=== PATIENT | female | born 1955 | race Caucasian/White ===

== ENCOUNTER 2021-12-14 12:20 | Outpatient (REF) | payer MEDICARE, MEDICAID, SELFPAY ==
[2021-12-14 14:22] LABS: MANUAL DIFF FLAG NO
[2021-12-14 14:26] LABS: Basophils Absolute Auto 0.1 X10*3/uL (0.0-0.2); Basophils Percent Auto 0.8 % (0-2); Eosinophils Absolute Auto 0.2 X10*3/uL (0.0-0.4); Eosinophils Percent Auto 2.3 % (0-4); Hematocrit 37.5 % (37.0-47.0); Hemoglobin 11.9 g/dl (12.0-16.0); Imm Gran Abs Auto 0.04 X10*3/uL (0.00-0.03); Imm Gran Pct Auto 0.4 % (0.0-0.4); Lymphocytes Absolute Auto 1.5 X10*3/uL (1.2-4.9); Lymphocytes Percent Auto 15.4 % (20-40); Mean Corpuscular HGB Conc 31.7 g/dl (31.0-35.0); Mean Corpuscular Hemoglobin 31.9 pg (27.0-33.0); Mean Corpuscular Volume 100.5 fL (80.0-98.0); Mean Platelet Volume 9.6 fL (9.4-12.3); Monocytes Percent Auto 9.9 % (2-11); Neutrophils Percent Auto 71.2 % (45-73); Platelet Count 235 X10*3/uL (160-400); Red Blood Count 3.73 X10*6/uL (4.20-5.50); Red Cell Distribution Width 13.2 % (11.0-16.0); White Blood Count 9.8 X10*3/uL (4.8-10.8)
[2021-12-14 15:04] LABS: Alanine Aminotransferase 23 U/L (0-31); Albumin Level 4.3 g/dL (3.5-5.0); Alkaline Phosphatase 64 U/L (39-117); Anion Gap 12 (12-20); Aspartate Amino Transferase 41 U/L (5-31); Bilirubin Total 0.7 mg/dL (0.0-1.0); Blood Urea Nitrogen 9 mg/dL (9-16); Calcium 9.3 mg/dL (8.4-10.2); Carbon Dioxide 29 mmol/L (22-29); Chloride 99 mmol/L (96-108); Cholesterol 157 mg/dL; Estimated Glomerular Filt Rate > 60; Glucose Fasting 93 mg/dL (60-99); HDL Cholesterol 67 mg/dL; LDL Cholesterol Calculated 68 mg/dl; Potassium 4.1 mmol/L (3.3-5.1); Sodium 136 mmol/L (135-145); Total Protein 7.7 g/dL (6.5-8.0); Triglycerides 110 mg/dL
[2021-12-14 15:05] LABS: B Type Natriuretic Peptide 145 pg/mL (<100)
[2021-12-14 15:25] LABS: TSH reflex Free T4 1.71 uIU/mL (0.32-4.0)
== END 2021-12-14 12:21 | disposition home or self-care (01) ==
LOC: HO.WFDLDS 12:20
PROVIDERS: Visit Provider Family Medicine
DX: Z00.00 Encounter for general adult medical examination without abnormal findings (principal); I50.9 Heart failure, unspecified
CPT/HCPCS: 36415; 80053; 80061; 83880; 84443; 85025

== ENCOUNTER 2021-12-15 10:11 | Outpatient (REF) | payer MEDICARE, MEDICAID, SELFPAY ==
[2021-12-15 14:31] LABS: Appearance Urine CLEAR; Color Urine YELLOW; Glucose Urine UA NEG (NEG); Leukocyte Esterase Urine 2+ (NEG); Nitrite Urine POS (NEG); Specific Gravity - Urine <= 1.005 (1.005-1.025); Urine Blood NEG (NEG); Urine Ketones NEG (NEG); Urine Protein NEG (NEG-TRACE)
[2021-12-15 14:49] LABS: RBC Urine 0 /HPF (0); WBC Urine 30-49 /HPF (0-4)
[2021-12-15 14:50] LABS: Bacteria Urine 3+ /LPF; Squamous Epithelial Cell Urine 2+ /LPF
[2021-12-15 15:03] LABS: Creatinine Urine 34.09 mg/dL; Microalbumin Urine < 5.0 mg/L
== END 2021-12-15 10:12 | disposition home or self-care (01) ==
LOC: HO.WFDLNP 10:11
PROVIDERS: Visit Provider Family Medicine
DX: Z00.00 Encounter for general adult medical examination without abnormal findings (principal); I10 Essential (primary) hypertension
CPT/HCPCS: 81001; 81003; 82043

== ENCOUNTER 2022-01-23 14:18 | Outpatient (REF) | payer MEDICARE, MEDICAID, SELFPAY ==
[2022-01-24 11:22] LABS: Appearance Urine Clear; Color Urine Yellow; Glucose Urine UA Negative (Negative); Leukocyte Esterase Urine Trace (Negative); Nitrite Urine Negative (Negative); Specific Gravity - Urine <= 1.005 (1.005-1.025); Urine Blood Negative (Negative); Urine Ketones Negative (Negative); Urine Protein Negative (Neg-Trace)
[2022-01-24 11:27] LABS: Bacteria Urine 4+ (None Seen); Hyaline Casts Urine 0-2 /LPF (0-2); RBC Urine 0-2 /HPF (0-2); Squamous Epithelial Cell Urine 0-2 /HPF (0-2); WBC Urine 0-5 /HPF (0-5)
== END 2022-01-23 14:19 | disposition home or self-care (01) ==
LOC: HO.LAB 14:18
PROVIDERS: Visit Provider Family Medicine
DX: R82.71 Bacteriuria (principal)
CPT/HCPCS: 81001; 87086; 87088; 87186

== ENCOUNTER 2022-01-24 10:59 | Outpatient (REF) | payer MEDICARE, MEDICAID, SELFPAY | END 2022-01-24 11:00 | disposition home or self-care (01) | LOC: HO.LNP 10:59 | PROVIDERS: Visit Provider Family Medicine | DX: Z13.89 Encounter for screening for other disorder (principal) ==

== ENCOUNTER 2022-02-08 14:56 | Outpatient (REF) | payer MEDICARE, MEDICAID, SELFPAY | END 2022-02-08 14:57 | disposition home or self-care (01) | LOC: HO.MAMMO 14:56 | PROVIDERS: PCP Family Medicine; Visit Provider Family Medicine | DX: Z13.89 Encounter for screening for other disorder (principal) ==

== ENCOUNTER 2022-06-20 16:38 | Outpatient (REF) | payer MEDICARE, MEDICAID, SELFPAY ==
[2022-06-20 17:21] LABS: Influenza A PCR NEGATIVE (Negative); Influenza B PCR NEGATIVE (Negative); Resp Syncy Virus RNA Qual PCR NEGATIVE (Negative); SARS COV2 PCR INHOUSE NEGATIVE (Negative)
== END 2022-06-20 16:39 | disposition home or self-care (01) ==
LOC: HO.LNP 16:38
PROVIDERS: Visit Provider Internal Medicine
DX: Z20.822 Contact with and (suspected) exposure to COVID-19 (principal); R43.9 Unspecified disturbances of smell and taste
CPT/HCPCS: 0241U

== ENCOUNTER 2022-07-04 11:51 | Outpatient (REF) | payer MEDICARE, MEDICAID, SELFPAY ==
[2022-07-04 13:53] LABS: Hematocrit 39.5 % (37.0-47.0); Mean Corpuscular HGB Conc 32.9 g/dl (31.0-35.0); Mean Platelet Volume 9.6 fL (9.4-12.3); Platelet Count 317 X10*3/uL (160-400); Red Cell Distribution Width 12.8 % (11.0-16.0); White Blood Count 29.9 X10*3/uL (4.8-10.8)
[2022-07-04 14:42] LABS: Alanine Aminotransferase 222 U/L (0-31); Albumin Level 3.5 g/dL (3.5-5.0); Alkaline Phosphatase 133 U/L (39-117); Anion Gap 20 (12-20); Aspartate Amino Transferase 216 U/L (5-31); Bilirubin Total 0.9 mg/dL (0.0-1.0); Blood Urea Nitrogen 10 mg/dL (9-16); Calcium 8.6 mg/dL (8.4-10.2); Carbon Dioxide 25 mmol/L (22-29); Chloride 92 mmol/L (96-108); Cholesterol 114 mg/dL; Estimated Glomerular Filt Rate > 60; Glucose Fasting 66 mg/dL (60-99); HDL Cholesterol 54 mg/dL; LDL Cholesterol Calculated 45 mg/dl; Potassium 3.5 mmol/L (3.3-5.1); Sodium 133 mmol/L (135-145); Total Protein 6.4 g/dL (6.5-8.0); Triglycerides 77 mg/dL
[2022-07-04 14:58] LABS: Folate 15.1 ng/mL (> or = 4.0); TSH reflex Free T4 0.72 uIU/mL (0.32-4.0); Vitamin B12 1472 pg/mL (200-900)
== END 2022-07-04 11:52 | disposition home or self-care (01) ==
LOC: HO.WFDLDS 11:51
PROVIDERS: Visit Provider Nurse Practitioner Family
DX: J20.9 Acute bronchitis, unspecified (principal)
CPT/HCPCS: 36415; 80053; 80061; 82607; 82746; 84443; 85027

== ENCOUNTER 2022-07-09 10:34 | Outpatient (REF) | payer MEDICARE, MEDICAID, SELFPAY ==
[2022-07-09 14:00] LABS: MANUAL DIFF FLAG NO
[2022-07-09 14:04] LABS: Basophils Percent Auto 0.1 % (0-2); Eosinophils Absolute Auto 0.1 X10*3/uL (0.0-0.4); Eosinophils Percent Auto 0.6 % (0-4); Hemoglobin 12.5 g/dl (12.0-16.0); Imm Gran Abs Auto 0.22 X10*3/uL (0.00-0.03); Lymphocytes Absolute Auto 1.3 X10*3/uL (1.2-4.9); Lymphocytes Percent Auto 5.9 % (20-40); Mean Corpuscular HGB Conc 33.8 g/dl (31.0-35.0); Mean Corpuscular Hemoglobin 31.6 pg (27.0-33.0); Mean Corpuscular Volume 93.4 fL (80.0-98.0); Mean Platelet Volume 9.8 fL (9.4-12.3); Monocytes Absolute Auto 1.4 X10*3/uL (0.1-1.2); Monocytes Percent Auto 6.5 % (2-11); Neutrophils Absolute Auto 18.7 x10*3/uL (2.0-8.3); Neutrophils Percent Auto 85.9 % (45-73); Platelet Count 292 X10*3/uL (160-400); Red Blood Count 3.96 X10*6/uL (4.20-5.50); Red Cell Distribution Width 12.8 % (11.0-16.0); White Blood Count 21.8 X10*3/uL (4.8-10.8)
[2022-07-11 04:48] LABS: HBc Num1 0.21 S/CO (0.00-0.79); HBsAGNum1 0.26 S/CO (0.00-0.99); Hepatitis A Antibody IgM 0.16 Index (0-0.79); Hepatitis B Core Antibody Nonreactive (Nonreactive); Hepatitis B Surface Antigen Negative (Negative); ~HepC Num1 0.12 S/CO (0.00-0.79); ~Hepatitis A Antibody IgM Nonreactive (Nonreactive); ~Hepatitis B Surface Antibody NONREACTIVE (Nonreactive); ~Hepatitis C Antibody Nonreactive (Nonreactive)
== END 2022-07-09 10:35 | disposition home or self-care (01) ==
LOC: HO.WFDLDS 10:34
PROVIDERS: Visit Provider Nurse Practitioner Family
DX: J20.9 Acute bronchitis, unspecified (principal); R74.8 Abnormal levels of other serum enzymes
CPT/HCPCS: 36415; 85025; 86704; 86706; 86709; 86803; 87340

== ENCOUNTER 2023-02-19 11:47 | Outpatient (AMB) | payer MEDICARE, SELFPAY ==
--- NOTE | 2023-02-19 11:53 | A.OFFPC_ITS ---
Vital Signs 02/19/23 11:54 Height 5 ft 4 in Weight 130 lb 2 oz BMI 22.3 BP 132/84 Blood Pressure Location Lt brachial Position Sitting Pulse 72 Pulse Source Pulse Oximeter Temp 98.7 F Temp Source Temporal Artery Scan Pulse Oximetry (%) 98 Oxygen Delivery Method Room Air Intake Visit Reasons: Scoliosis Follow Up Intake Note: Patient is here to follow up for scoliosis. 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 Accompanied by: Self / Same As Patient Allergies erythromycin base Allergy (Severe, Verified 02/19/23 12:01) tachycardia fentanyl Allergy (Severe, Verified 02/19/23 12:01) drop in vitals hydromorphone [From Dilaudid] Allergy (Severe, Verified 02/19/23 12:01) drop in vitals Penicillins Allergy (Severe, Verified 02/19/23 12:01) tachycardia Tobacco use date assessed: 07/04/22 Fall risk assessment: 1 Fall in past year Last assessed Fall Risk: 02/19/23 Dental Screening Dental Screen Date: 02/19/23 Did you have a dental visit in the last 12 months?: Yes Did you have a dental problem in the last 6 months where you did not have access to dental care?: No Was dental information given to patient?: Patient has dentist HPI Scoliosis Follow Up HPI Details 67 y/o female presents to f/u scoliosis and chronic conditions. Pt has severe scoliosis and kyphosis. Pt reports scoliosis has progressed and reports intense back pain whenever she gets on her feet. Recent pneumonia - pt also does have COPD. [facility] Medical History (Updated 02/19/23 @ 12:20 by Paddy Neri) Lower extremity edema Social History Housing: Apartment Patient Tobacco Use Status: Never used Tobacco e-Cigarette/Vaping Use: Never Used Second Hand Smoke Exposure: No service: No Current occupational status: disabled Current occupational exposures/hazards: No Cognitive needs: No Hearing needs: No Vision needs: No Questionnaire Thrive Questionnaire Date Thrive assessed: 07/04/22 AMANDA-7 AMB Questionnaire AMANDA-7 Date AMANDA - 7 assessed: 07/04/22 Source: Developed by Drs. Chon Varma, Kasey Dewey, Tereso Wright and colleagues, with an educational chelly from [employer]. Review of Systems Const Denies chills, Denies fatigue, Denies fever(s), Denies headache(s) and Denies weakness ENT Denies dizziness and Denies headache(s) Card Denies dyspnea Resp Denies cough, Denies dyspnea, Denies wheezing and Denies other (shortness of breath) Musc Reports back pain, Denies numbness and Denies tingling Neuro Denies dizziness, Denies headache(s), Denies numbness, Denies tingling and Denies weakness Psych Denies anxiety and Denies depression Endo Denies fatigue Aller/Immun Denies wheezing Physical exam (Primary Care) Vital Signs: Last Vital Signs Temp 98.7 F 02/19/23 11:54 Pulse 72 02/19/23 11:54 BP 132/84 02/19/23 11:54 Pulse Ox 98 02/19/23 11:54 Oxygen Delivery Method Room Air 02/19/23 11:54 BMI result Body Mass Index 22.3 Tobacco/Smoking Status: Tobacco use Status Tobacco use date assessed 07/04/22 02/19/23 11:55 Patient Tobacco Use Status Never used Tobacco 02/19/23 11:55 e-Cigarette/Vaping Use Never Used 02/19/23 11:55 Thrive Assessment: Date of Thrive Assessment Date Thrive assessed 07/04/22 02/19/23 11:55 Const General: well developed; No acute distress Nutritional Appearance: well nourished Orientation/consciousness: patient oriented x3 [facility] Head: Yes normocephalic and Yes atraumatic Eyes General: appearance normal, both eyes and all related structures Pupils: Equal, round and reactive pupils present EOM: EOMs intact bilaterally Resp Effort & Inspection: normal respiratory effort Auscultation: clear to auscultation bilaterally Cardio Rate: regular rate Rhythm: regular rhythm Heart sounds: S1 normal heart sound present, S2 normal heart sound present, no gallops, no murmurs and no rubs Neuro General: patient oriented x3 and gait normal Cranial nerves: Yes Equal, round and reactive pupils present Psych Affect: normal affect Assessment and Plan Assessment & Plan (1) Back pain: Code(s): M54.9 - Dorsalgia, unspecified Plan: Severe chronic mid and low back pain in a 67-year-old woman who has rather severe scoliosis and kyphosis. Had referred her to [facility] in the past but patient says she cannot tolerate in an MRI. Will refer her to [facility] to see if they will evaluate it and treat. I am ordering imaging including thoracic and lumbar CT scan as she says she can tolerate this Can use acetaminophen and I will give her a script for diclofenac gel. Patient has history of left nephrectomy and avoiding oral NSAIDs if possible. Checking renal function lab (2) Scoliosis: Code(s): M41.9 - Scoliosis, unspecified Plan: As above (3) Kyphosis: Code(s): M40.209 - Unspecified kyphosis, site unspecified Plan: As above (4) Pneumonia: Code(s): J18.9 - Pneumonia, unspecified organism Plan: Recent pneumonia in a patient with COPD. Lungs are clear today. Follow-up with pulmonology as recommended (5) COPD (chronic obstructive pulmonary disease): Code(s): J44.9 - Chronic obstructive pulmonary disease, unspecified Plan: Likely at baseline though she notes she has some shortness of breath chronically. She is still vaping and advised her to decrease and stop this. Advised her to take frequent deep breaths and mild coughs to clear her lungs as she likely has some restrictive disease as well from her kyphosis and scoliosis. Orders: Orders Basic Metabolic Panel Today M41.9 - Scoliosis, unspecified, Z00.00 - Encounter for general adult medical examination without abnormal findings CT lumbar spine wo IV con Today M40.209 - Unspecified kyphosis, site unspecified, M41.9 - Scoliosis, unspecified, M54.9 - Dorsalgia, unspecified XR lumbar spine 2-3V Today M41.9 - Scoliosis, unspecified CT thoracic spine wo IV con Today M40.209 - Unspecified kyphosis, site unspecified, M41.9 - Scoliosis, unspecified, M54.9 - Dorsalgia, unspecified Medications: New diclofenac sodium 1% apply to single elbow, wrist or hand; for hand includes palm/fingers/back of hand 4 grams topical QID 30 days 200 grams 2RF Coding Level of Care Code Est Pt Level 4 (72058) Diagnoses Back pain M54.9 Scoliosis M41.9 Kyphosis M40.209 Pneumonia J18.9 COPD (chronic obstructive pulmonary disease) J44.9
[2023-02-19 11:54] VITALS: BP 132/84; PULSE 72; TEMP 37.1; O2SAT 98; BMI 22.3
== END 2023-02-19 13:04 | disposition home or self-care (01) ==
PROVIDERS: PCP Family Medicine; Visit Provider Family Medicine
DX: M54.9 Dorsalgia, unspecified (principal); M41.9 Scoliosis, unspecified; J18.9 Pneumonia, unspecified organism; J44.9 Chronic obstructive pulmonary disease, unspecified
CPT/HCPCS: 99214

== ENCOUNTER 2023-03-19 15:48 | Outpatient (AMB) | payer MEDICARE, SELFPAY ==
--- NOTE | 2023-03-19 15:53 | A.OFFPC_ITS ---
Vital Signs 03/19/23 16:03 Height 5 ft 4 in Weight 126 lb BMI 21.6 BP 120/70 Blood Pressure Location Lt brachial Position Sitting Respiration 12 Pulse 74 Pulse Source Pulse Oximeter Pulse Oximetry (%) 95 Oxygen Delivery Method Room Air Intake Visit Reasons: Extended exam Intake Note: Patient is here for an extended exam. Allergies erythromycin base Allergy (Severe, Verified 02/19/23 12:01) tachycardia fentanyl Allergy (Severe, Verified 02/19/23 12:01) drop in vitals hydromorphone [From Dilaudid] Allergy (Severe, Verified 02/19/23 12:01) drop in vitals Penicillins Allergy (Severe, Verified 02/19/23 12:01) tachycardia Medication List - Last Reconciled 03/19/23 by Eddi Kee MD acetaminophen 1,000 mg PO BID PRN albuterol sulfate 90 mcg/actuation (Ventolin HFA) 2 puffs inhalation QID PRN aspirin 81 mg PO DAILY atorvastatin 40 mg PO BEDTIME 90 days clonazepam 0.5 mg PO DAILY 30 days diclofenac sodium 1% 4 grams topical QID 30 days diclofenac sodium 1% 4 grams topical QID 30 days fluticasone furoate-vilanterol 100-25 mcg/dose (Breo Ellipta) 1 inh inhalation DAILY furosemide 20 mg PO DAILY levofloxacin 500 mg PO DAILY 10 days ondansetron 4 mg PO Q8H PRN potassium chloride ER 10 mEq PO DAILY 30 days promethazine 25 mg PO TID PRN propranolol ER 60 mg PO DAILY 90 days tiotropium bromide 2.5 mcg/actuation (Spiriva Respimat) 2 puffs inhalation DAILY Tobacco use date assessed: 07/04/22 HPI Extended exam HPI Details 68 y/o female presents for an extended e xam with f/u labs and health maintenance. No recent labs to review. Also f/u back pain from kyphosis and scoliosis. Had ordered x-rays and CT scans o lumbar and thoracic spine. Had referred her to [facility]. She is taking acetaminophen and I have given her diclofenac gel. Has a history of left nephrectomy so avoiding oral NSAIDs if possible. She notes she had been unable to get her x-rays/CT scans. [facility] Medical History (Updated 03/19/23 @ 16:29 by Paddy Neri) Lower extremity edema Social History Housing: Apartment Patient Tobacco Use Status: Never used Tobacco e-Cigarette/Vaping Use: Never Used Second Hand Smoke Exposure: No service: No Current occupational status: disabled Current occupational exposures/hazards: No Cognitive needs: No Hearing needs: No Vision needs: No Questionnaire Thrive Questionnaire Date Thrive assessed: 07/04/22 AMANDA-7 AMB Questionnaire AMANDA-7 Date AMANDA - 7 assessed: 07/04/22 Source: Developed by Drs. Chon Varma, Kasey Dewey, Tereso Wright and colleagues, with an educational chelly from [employer]. Review of Systems Const Denies chills, Denies fatigue, Denies fever(s), Denies headache(s) and Denies weakness Eyes Denies change in vision ENT Denies dizziness, Denies headache(s), Denies hearing loss, Denies nasal conges tion, Denies sinus pain, Denies sinus pressure and Denies sore throat Card Denies chest pain, Denies lightheadedness, Denies dyspnea and Denies other (palpitations) Resp Denies cough, Denies dyspnea and Denies wheezing GI Denies abdominal pain, Denies melena, Denies hematochezia, Denies change in bowel habits, Denies dyspepsia and Denies nausea Denies hematuria and Denies dysuria Musc Denies abnormal gait, Denies myalgias, Denies arthralgias, Denies numbness and Denies tingling Skin/Breast Denies rash, Denies unusual bruising and Denies wounds Neuro Denies abnormal gait, Denies dizziness, Denies headache(s), Denies memory loss, Denies numbness, Denies Sensory deficit (Neuro), Denies tingling and Denies weakness Psych Denies anxiety, Denies depression and Denies memory loss Endo Denies cold intolerance, Denies fatigue, Denies heat intolerance, Denies polydipsia and Denies polyuria Augustin/Lymph Denies easy bleeding and Denies easy bruising Aller/Immun Denies wheezing Physical exam (Primary Care) Vital Signs: Last Vital Signs Pulse 74 03/19/23 16:03 Resp 12 03/19/23 16:03 BP 120/70 03/19/23 16:03 Pulse Ox 95 03/19/23 16:03 Oxygen Delivery Method Room Air 03/19/23 16:03 BMI result Body Mass Index 21.6 Tobacco/Smoking Status: Tobacco use Status Tobacco use date assessed 07/04/22 03/19/23 15:55 Patient Tobacco Use Status Never used Tobacco 03/19/23 15:55 e-Cigarette/Vaping Use Never Used 03/19/23 15:55 Thrive Assessment: Date of Thrive Assessment Date Thrive assessed 07/04/22 03/19/23 15:55 Const General: no acute distress, well developed, alert and awake Nutritional Appearance: well nourished Orientation/consciousness: patient oriented x3 [facility] Head: Yes normocephalic and Yes atraumatic Ears: hearing grossly normal bilaterally and TM's normal bilaterally General nose exam: Normal external nose present and Normal nares present Mouth: Normal oral and palatal mucosa present and moist mucous membranes Teeth and gingiva: dentition normal Throat: Yes posterior oropharynx normal Eyes General: appearance normal, both eyes and all related structures Pupils: Equal, round and reactive pupils present and Pupil accommodation reflex normal EOM: EOMs intact bilaterally Neck Neck: Yes normal visual inspection, Yes no lymphadenopathy and Yes trachea midline Thyroid: Thyroid normal Carotids: no bruits Lymphatic: no lymphadenopathy noted Chest Chest palpation & inspection: normal inspection of the chest Resp Effort & Inspection: normal respiratory effort Auscultation: clear to auscultation bilaterally Cardio Rate: regular rate Rhythm: regular rhythm Heart sounds: S1 normal heart sound present, S2 normal heart sound present, no gallops, no murmurs and no rubs Bruits: no abdominal aortic bruits and no carotid bruits GI Palpation (GI): No Abdominal aortic bruit present, Soft to palpation, nontender, No hepatosplenomegaly present and No Rebound tenderness present Auscultation: normal bowel sounds General: Yes no CVA tenderness Back/Spine/Pelvis Back: no CVA tenderness Cervical Spine: cervical ROM normal and No Cervical spine tenderness Thoracic/Lumbar Spine: thoraco-lumbar ROM normal, No pain with thoraco-lumbar ROM, No thoracic spinal tenderness and No lumbar spinal tenderness Skin Lesions: no lesions Rashes: no rashes Trauma: no lacerations or abrasions Wounds: no wounds Nails: normal Neuro General: patient oriented x3 Cranial nerves: Yes Equal, round and reactive pupils present Cognition (Neuro): normal cognition Gait exam (Neuro): Normal gait present Motor exam (neuro): 5/5 motor strength present throughout Sensory Exam: No Sensory deficit (Neuro) Deep tendon reflexes (DTR's): Right patellar reflex intensity grade: 2+ and Left patellar reflex intensity grade: 2+ Extrem General: Yes normal to inspection and No edema Psych Appearance: grossly normal Affect: normal affect Attitude: cooperative Thought process: Normal thought process present Assessment and Plan Assessment & Plan (1) Back pain: Code(s): M54.9 - Dorsalgia, unspecified Plan: Ongoing?severe?back?pain?and?deformity?due?to?kyphosis?and?scoliosis. Patient?has?single?kidney?and?avoiding?NSAIDs Tried?diclofenac?without?much?improvement. Awaiting?CT?scans Patient?may?be?a?good?candidate?for?opioid?therapies I?have?also?r eferred?her?to[facility]?but?she?has?not?heard?back?from?them?yet. ??Will?ask?the?office?to?check?on?the?status?of?this?referral. (2) Breast cancer screening by mammogram: Code(s): Z12.31 - Encounter for screening mammogram for malignant neoplasm of breast Plan: Negative?for?malignancy?in?October?2022 Continue?annual?screening (3) Screening for cervical cancer: Code(s): Z12.4 - Encounter for screening for malignant neoplasm of cervix Plan: S/p?hysterectomy?years?ago. 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 (5) COPD (chronic obstructive pulmonary disease): Code(s): J44.9 - Chronic obstructive pulmonary disease, unspecified Plan: Stable Follow-up?with?pulmonology?as?recommended (6) Screening for osteoporosis: Code(s): Z13.820 - Encounter for screening for osteoporosis Plan: Check?DEXA?scan (7) Adult general medical exam: Code(s): Z00.00 - Encounter for general adult medical examination without abnormal findings Plan: 68-year-old?female?presents?for?an?extended?exam Orders: Orders XR DEXA axial skeleton Today M81.0 - Age-related osteoporosis without current pathological fracture Referrals Gastroenterology Referral Z12.11 - Encounter for screening for malignant neoplasm of colon Coding Level of Care Code Est Pt Level 4 (49779) Diagnoses Back pain M54.9 Breast cancer screening by mammogram Z12.31 Screening for cervical cancer Z12.4 Screening for colon cancer Z12.11 COPD (chronic obstructive pulmonary disease) J44.9 Screening for osteoporosis Z13.820 Adult general medical exam Z00.00
[2023-03-19 16:03] VITALS: BP 120/70; PULSE 74; RESP 12; O2SAT 95; BMI 21.6
== END 2023-03-19 17:13 | disposition home or self-care (01) ==
PROVIDERS: PCP Family Medicine; Visit Provider Family Medicine
DX: J44.9 Chronic obstructive pulmonary disease, unspecified (principal); M54.9 Dorsalgia, unspecified; Z12.31 Encounter for screening mammogram for malignant neoplasm of breast; Z12.11 Encounter for screening for malignant neoplasm of colon; Z13.820 Encounter for screening for osteoporosis
CPT/HCPCS: 99214

== ENCOUNTER 2023-05-24 13:48 | Outpatient (AMB) | payer MEDICARE, SELFPAY ==
--- NOTE | 2023-05-24 13:57 | A.OFFPC_ITS ---
Vital Signs 05/24/23 14:00 Height 5 ft 4 in Weight 128 lb BMI 22.0 BP 122/72 Blood Pressure Location Lt brachial Position Sitting Pulse 68 Pulse Source Pulse Oximeter Pulse Oximetry (%) 96 Oxygen Delivery Method Room Air Intake Visit Reasons: Lab follow up, see comments Intake Note: Patient is here to follow up on labs and tests. Allergies erythromycin base Allergy (Severe, Verified 05/24/23 13:58) tachycardia fentanyl Allergy (Severe, Verified 05/24/23 13:58) drop in vitals hydromorphone [From Dilaudid] Allergy (Severe, Verified 05/24/23 13:58) drop in vitals Penicillins Allergy (Severe, Verified 05/24/23 13:58) tachycardia Tobacco use date assessed: 07/04/22 HPI Lab follow up, see comments HPI Details 68 y/o female presents to f/u labs. Has complaints of ongoing dysuria today. CT scan showed possible compression fracture and some osteopenia. [facility] Medical History (Updated 05/24/23 @ 14:21 by Paddy Neri) Lower extremity edema Social History Housing: Apartment Patient Tobacco Use Status: Never used Tobacco e-Cigarette/Vaping Use: Never Used Second Hand Smoke Exposure: No service: No Current occupational status: disabled Current occupational exposures/hazards: No Cognitive needs: No Hearing needs: No Vision needs: No Questionnaire Thrive Questionnaire Date Thrive assessed: 07/04/22 AMANDA-7 AMB Questionnaire AMANDA-7 Date AMANDA - 7 assessed: 07/04/22 Source: Developed by Drs. Chon Varma, Kasey Dewey, Tereso Wright and colleagues, with an educational chelly from [employer]. Physical exam (Primary Care) Vital Signs: Last Vital Signs Pulse 68 05/24/23 14:00 BP 122/72 05/24/23 14:00 Pulse Ox 96 05/24/23 14:00 Oxygen Delivery Method Room Air 05/24/23 14:00 BMI result Body Mass Index 22.0 Tobacco/Smoking Status: Tobacco use Status Tobacco use date assessed 07/04/22 05/24/23 13:57 Patient Tobacco Use Status Never used Tobacco 05/24/23 13:57 e-Cigarette/Vaping Use Never Used 05/24/23 13:57 Thrive Assessment: Date of Thrive Assessment Date Thrive assessed 07/04/22 05/24/23 13:57 Results AMB Urinalysis Dipstick UR Leukocytes Large Last Edit by Angella Lopez CMA on 05/24/23 14:17 UR Nitrite Negative Last Edit by Angella Lopez CMA on 05/24/23 14:17 UR Urobilinogen Normal Last Edit by Angella Lopez CMA on 05/24/23 14:17 UR Protein 100 Last Edit by Angella Lopez CMA on 05/24/23 14:17 UR Ph 6.0 Last Edit by Angella Lopez CMA on 05/24/23 14:17 UR Blood Large Last Edit by Angella Lopez CMA on 05/24/23 14:17 UR Specific [place] 1.015 Last Edit by Angella Lopez CMA on 05/24/23 14:1 7 UR Ketone Negative Last Edit by Angella Lopez CMA on 05/24/23 14:17 UR Bilirubin Negative Last Edit by Angella Lopez CMA on 05/24/23 14:17 UR Glucose Negative Last Edit by Angella Lopez CMA on 05/24/23 14:17 Assessment and Plan Assessment & Plan (1) Back pain: Code(s): M54.9 - Dorsalgia, unspecified Plan: Ongoing?back?pain Has?been?seen?b y?[facility]?and?they?recommended?an?MRI.??Patient?can?not?tolerat e?closed?spaces?such?as?an?MRI. CT?scan?shows?likely?new?T4?vertebral?compression?fracture?and?also?suggests?ost eopenia. Advised?she?follow- up?with?[facility]?and?discuss?with?them?an?open?MRI Patient?has?single?kidney?and?avoids?NSAIDs.??She?does?not?tolerate?many?opioid? medications?but?says?she?has?tolerated?oxycodone?in?the?past. Will?give?her?a?script?for?Percocet at?low?dose;?2.5?mg?daily?oxycodone?dose Likely?has?osteoporosis?and?I?had?ordered?a?bone?density?test?which?was?not?acqu ired.??I?have?reordered?this. May?benefit?from?alendronate.??Will?follow-up?after?bone?density?test (2) Vertebral compression fracture: Code(s): M48.50XA - Collapsed vertebra, not elsewhere classified, site unspecified, initial encounter for fracture Plan: As?above (3) Osteopenia: Code(s): M85.80 - Other specified disorders of bone density and structure, unspecified site Plan: As?above Checking?bone?density?test?and?will?likely?start?alendronate. (4) Dysuria: Code(s): R30.0 - Dysuria Plan: Start?Macrobid?for?likely?urinary?tract?infection. Urine?will?be?sent?to?lab?for?urinalysis?and?culture?with?sensitivities. Orders: Orders UA and rflx microscopic Today N39.0 - Urinary tract infection, site not specified, Z00.00 - Encounter for general adult medical examination without abnormal findings Urine Culture Today N39.0 - Urinary tract infection, site not specified AMB Urinalysis Dipstick Today R30.0 - Dysuria Medications: New nitrofurantoin monohyd/m-cryst 100 mg (Macrobid) must administer with a meal/food 100 mg PO BID 7 days 14 caps 0RF oxycodone-acetaminophen 2.5-325 mg (Percocet) Partial Fill upon patient request. 1 tab PO DAILY 30 days PRN 30 tabs 0RF pain Refilled clonazepam 0.5 mg PO DAILY 30 days 30 tabs 0RF Coding Level of Care Code Est Pt Level 4 (85749) Diagnoses Back pain M54.9 Vertebral compression fracture M48.50XA Osteopenia M85.80 Dysuria R30.0
[2023-05-24 14:00] VITALS: BP 122/72; PULSE 68; O2SAT 96; BMI 22.0
== END 2023-05-24 14:47 | disposition home or self-care (01) ==
PROVIDERS: PCP Family Medicine; Visit Provider Family Medicine
DX: M54.9 Dorsalgia, unspecified (principal); M48.50XA Collapsed vertebra, not elsewhere classified, site unspecified, initial encounter for fracture; M85.80 Other specified disorders of bone density and structure, unspecified site; R30.0 Dysuria
CPT/HCPCS: 81002; 99214

== ENCOUNTER 2023-05-24 14:06 | Outpatient (REF) | payer MEDICARE, SELFPAY | END 2023-05-24 14:07 | disposition home or self-care (01) | LOC: HO.LAB 14:06 | PROVIDERS: Visit Provider Family Medicine | DX: Z00.00 Encounter for general adult medical examination without abnormal findings (principal); N39.0 Urinary tract infection, site not specified | CPT/HCPCS: 87086 ==

== ENCOUNTER 2023-06-14 14:50 | Outpatient (REF) | payer MEDICARE, SELFPAY | END 2023-06-14 14:51 | disposition home or self-care (01) | LOC: HO.LNP 14:50 | PROVIDERS: Visit Provider Family Medicine | DX: N39.0 Urinary tract infection, site not specified (principal) | CPT/HCPCS: 87086; 87088; 87186 ==

== ENCOUNTER 2023-06-28 13:34 | Outpatient (AMB) | payer MEDICARE, SELFPAY ==
[2023-06-28 13:38] VITALS: BP 120/68; PULSE 69; O2SAT 100; BMI 20.8
--- NOTE | 2023-06-28 13:38 | A.OFFPC_ITS ---
Vital Signs 06/28/23 13:38 Height 5 ft 4 in Weight 121 lb 6 oz BMI 20.8 BP 120/68 Blood Pressure Location Lt brachial Position Sitting Pulse 69 Pulse Source Pulse Oximeter Pulse Oximetry (%) 100 Oxygen Delivery Method Room Air Intake Visit Reasons: f/u back pain Intake Note: Patient is here to follow up on her back pain. Allergies erythromycin base Allergy (Severe, Verified 06/28/23 13:40) tachycardia fentanyl Allergy (Severe, Verified 06/28/23 13:40) drop in vitals hydromorphone [From Dilaudid] Allergy (Severe, Verified 06/28/23 13:40) drop in vitals Penicillins Allergy (Severe, Verified 06/28/23 13:40) tachycardia Tobacco use date assessed: 06/28/23 Fall risk assessment: No Falls in past year Last assessed Fall Risk: 06/28/23 HPI f/u back pain HPI Details 68 y/o female presents to f/u back pain. Pt had seen [facility] 06/17/23. They plan to obtain CAT scan results and most likely need a bone scan to evaluate for ongoing fracture activity. Severe worsening back pain. 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 CT scan showed some osteopenia. [facility] Medical History Lower extremity edema Social History Housing: Apartment Patient Tobacco Use Status: Never used Tobacco e-Cigarette/Vaping Use: Never Used Second Hand Smoke Exposure: No service: No Current occupational status: disabled Current occupational exposures/hazards: No Cognitive needs: No Hearing needs: No Vision needs: No Questionnaire Thrive Questionnaire Date Thrive assessed: 07/04/22 AMANDA-7 AMB Questionnaire AMANDA-7 Date AMANDA - 7 assessed: 07/04/22 Source: Developed by Drs. Chon Varma, Kasey Dewey, Tereso Wright and colleagues, with an educational chelly from [employer]. Physical exam (Primary Care) BMI result Body Mass Index 20.8 Tobacco/Smoking Status: Tobacco use Status Tobacco use date assessed 06/28/23 06/28/23 13:42 Patient Tobacco Use Status Never used Tobacco 06/28/23 13:39 e-Cigarette/Vaping Use Never Used 06/28/23 13:39 Thrive Assessment: Date of Thrive Assessment Date Thrive assessed 07/04/22 06/28/23 13:39 Assessment and Plan Assessment & Plan (1) Back pain: Code(s): M54.9 - Dorsalgia, unspecified Plan: Severe?and?wors ening?back?pain?with?lumbar?compression?fracture?and?osteoarthritis. Recent?bone?scan?shows?significant?arthritis?of?spine.??No?metastatic?disease. Avoiding?NSAIDs?due?to?single?kidney?as?per?her?scientific director?recommendations. Had?patient?sign?contract?for?pain?medication. Will?also?have?her?use?topicals?and?Tylenol She?will?continue?to?follow-up?with[facility] She?also has?known?decreased?bone?mineral?density?seen?as?osteopenia?on?CT?scan. I?had?ordered?a?bone?density?test?in?February.??Has?not?been?scheduled?yet.??Ask? office?to?help?facilitate?this. Discussed?kyphoplasty?with?pat ient?as?she?is?apprehensive?about?this?idea.??Encouraged?her?to?speak?to??Meagan bowles about?this?again. (2) Osteopenia: Code(s): M85.80 - Other specified disorders of bone density and structure, unspecified site Plan: As?above Likely?as?osteoporosis?and?awaiting?bone?density?testing. She?is?likely?a?good?candidate?for?alendronate. Medications: Changed From acetaminophen 1,000 mg PO BID PRN To acetaminophen Do not exceed total daily dose of 3000mg. 1,000 mg (2 x 500 mg) PO BID PRN 120 caps 3RF pain 30 days From oxycodone-acetaminophen 2.5-325 mg (Percocet) Partial Fill upon patient request. 1 tab PO DAILY PRN 30 tabs 0RF pain 30 days To oxycodone-acetaminophen 2.5-325 mg (Percocet) MAssPat Verified. Partial Fill upon patient request. 1 tab PO BID PRN 30 tabs 0RF pain 30 days Refilled diclofenac sodium 1% apply to single elbow, wrist or hand; for hand includes palm/fingers/back of hand 4 grams topical QID 200 grams 2RF 30 days Coding Level of Care Code Est Pt Level 3 (61942) Diagnoses Back pain M54.9 Osteopenia M85.80
== END 2023-06-28 14:52 | disposition home or self-care (01) ==
PROVIDERS: PCP Family Medicine; Visit Provider Family Medicine
DX: M54.9 Dorsalgia, unspecified (principal); M85.80 Other specified disorders of bone density and structure, unspecified site
CPT/HCPCS: 99213

== ENCOUNTER 2023-08-12 18:16 | Outpatient (REF) | payer MEDICARE, SELFPAY ==
[2023-08-13 14:23] LABS: Influenza A PCR NEGATIVE (Negative); Influenza B PCR NEGATIVE (Negative); Resp Syncy Virus RNA Qual PCR NEGATIVE (Negative); SARS COV2 PCR INHOUSE NEGATIVE (Negative)
== END 2023-08-12 18:17 | disposition home or self-care (01) ==
LOC: HO.LAB 18:16
PROVIDERS: Visit Provider Nurse Practitioner Family
DX: R09.89 Other specified symptoms and signs involving the circulatory and respiratory systems (principal); Z11.52 Encounter for screening for COVID-19
CPT/HCPCS: 0241U

== ENCOUNTER 2023-10-25 11:23 | Outpatient (AMB) | payer MEDICARE, SELFPAY ==
[2023-10-25 11:52] VITALS: BP 118/74; PULSE 78; O2SAT 95; BMI 19.4
--- NOTE | 2023-10-25 11:52 | MHC.PC.OV ---
Vital Signs 10/25/23 11:52 Height 5 ft 4 in Weight 113 lb 2 oz BMI 19.4 BP 118/74 Blood Pressure Location Lt brachial Position Sitting Pulse 78 Pulse Source Pulse Oximeter Pulse Oximetry (%) 95 Oxygen Delivery Method Room Air Intake Visit Reasons: F/U back pain + bone density test results Intake Note: Patient is here for follow up on back, and follow up on bone density results, they are not in yet. Patient is concerned about in her left eye, it's very itchy. Allergies erythromycin base Allergy (Severe, Verified 08/12/23 17:54) tachycardia fentanyl Allergy (Severe, Verified 08/12/23 17:54) drop in vitals hydromorphone [From Dilaudid] Allergy (Severe, Verified 08/12/23 17:54) drop in vitals Penicillins Allergy (Severe, Verified 08/12/23 17:54) tachycardia Tobacco use date assessed: 10/25/23 Fall risk assessment: No Falls in past year Last assessed Fall Risk: 10/25/23 Dental Screening Dental Screen Date: 08/12/23 HPI F/U back pain + bone density test results HPI Details 68 y/o female presents to f/u back pain + bone density test results. Bone density test results show osteoporosis. She reports she had gotten a bone density test done at [facility]. Recent bone scan did show some arthritic changes. She reports itchiness L eye. They report increased anxiety and questions whether they should increase her clonazepam. HPI Comments History of Present Illness Details Documentation assistance for Eddi Kee MD, was provided by Paddy Neri, Exhibit Technician on 10/25/2023 at 12:43 PM EST. I, Dr. Kee, have read, observed, and verified documentation. [facility] Medical History No pertinent past medical history Lower extremity edema Surgical History No pertinent past surgical history Social History Housing: Apartment Patient Tobacco Use Status: Never used Tobacco e-Cigarette/Vaping Use: Never Used Second Hand Smoke Exposure: No service: No Current occupational status: disabled Current occupational exposures/hazards: No Cognitive needs: No Hearing needs: No Vision needs: No Questionnaire Thrive Questionnaire Date Thrive assessed: 07/04/22 AMANDA-7 AMB Questionnaire AMANDA-7 Date AMANDA - 7 assessed: 07/04/22 Source: Developed by Drs. Chon Varma, Kasey Dewey, Tereso Wright and colleagues, with an educational chelly from [employer]. Review of Systems Const Denies chills, Denies fatigue, Denies fever(s), Denies headache(s) and Denies weakness ENT Denies dizziness and Denies headache(s) Card Denies dyspnea Resp Denies cough, Denies dyspnea, Denies wheezing and Denies other (shortness of breath) Musc Reports back pain, Denies numbness and Denies tingling Neuro Denies dizziness, Denies headache(s), Denies numbness, Denies tingling and Denies weakness Psych Reports anxiety and Denies depression Endo Denies fatigue Aller/Immun Denies wheezing Physical exam (Primary Care) Vital Signs: Last Vital Signs Pulse 78 10/25/23 11:52 BP 118/74 10/25/23 11:52 Pulse Ox 95 10/25/23 11:52 Oxygen Delivery Method Room Air 10/25/23 11:52 BMI result Body Mass Index 19.4 Tobacco/Smoking Status: Tobacco use Status Tobacco use date assessed 10/25/23 10/25/23 12:07 Patient Tobacco Use Status Never used Tobacco 10/25/23 11:53 e-Cigarette/Vaping Use Never Used 10/25/23 11:53 Thrive Assessment: Date of Thrive Assessment Date Thrive assessed 07/04/22 10/25/23 11:53 Const General: well developed; No acute distress Nutritional Appearance: well nourished Orientation/consciousness: patient oriented x3 HENMT Head: Yes normocephalic and Yes atraumatic Eyes General: appearance normal, both eyes and all related structures Pupils: Equal, round and reactive pupils present EOM: EOMs intact bilaterally Resp Effort & Inspection: normal respiratory effort Neuro General: patient oriented x3 and gait normal Cranial nerves: Yes Equal, round and reactive pupils present Psych Affect: normal affect Assessment and Plan Assessment & Plan (1) Back pain: Code(s): M54.9 - Dorsalgia, unspecified Plan: Back?pain?and?CT?scan?had?raised?concern?for?subtle?compression?fracture.??Also?shows?osteopenia?and?now?completed?bone?density?test?confirms?osteoporosis. She?is?on?Percocet?for?chronic?back?pain?and?we?are?avoiding?NSAIDs?due?to?her?single?kidney Using?medication?as?prescribed Will?continue?medication We?discussed?that?if?pain?worsens,?rather?than?increasing?her?pain?medication,?she?agrees?to?reconsider?steroid?injections?as?recommended?by?physiatry. (2) Osteoporosis: Code(s): M81.0 - Age-related osteoporosis without current pathological fracture Plan: Bone?density?confirms?osteoporosis Risks/benefits?of?medication?discussed?and?we?will?trial?alendronate (3) Anxiety: Code(s): F41.9 - Anxiety disorder, unspecified Plan: Worsened?anxiety.??She?was?switched?previously?from?lorazepam?to?clonazepam?which?has?improved?control?but?still?has?daily?symptoms. Will?add?bupropion.??She?can?continue?clonazepam?for?breakthrough?anxiety. She?has?tried?an SSRI?in?the?past;?Zoloft?and?she?did?not?tolerate?it. We?discussed?that?if?she?is?unable?to?tolerate?bupropion?we?can?consider?a?small?increase?in?her?clonazepam. Medications: New bupropion HCl 75 mg PO DAILY 30 days 30 tabs 2RF alendronate 70 mg PO QWEEK 28 days 4 tabs 3RF M81.0 - Age-related osteoporosis without current pathological fracture Coding Level of Care Code Est Pt Level 4 (44258) Diagnoses Back pain M54.9 Osteoporosis M81.0 Anxiety F41.9
== END 2023-10-25 13:00 | disposition home or self-care (01) ==
PROVIDERS: PCP Family Medicine; Visit Provider Family Medicine
DX: M54.9 Dorsalgia, unspecified (principal); M81.0 Age-related osteoporosis without current pathological fracture; F41.9 Anxiety disorder, unspecified
CPT/HCPCS: 99214

== ENCOUNTER 2023-12-05 14:38 | Outpatient (AMB) | payer MEDICARE, SELFPAY ==
--- NOTE | 2023-12-05 14:39 | A.OFFPC_ITS ---
Vital Signs 12/05/23 14:40 Height 5 ft 4 in Weight 113 lb 2 oz BMI 19.4 BP 112/74 Blood Pressure Location Rt brachial Position Sitting Respiration 15 Pulse 68 Pulse Source Pulse Oximeter Temp 97.7 F Temp Source Temporal Artery Scan Pulse Oximetry (%) 97 Oxygen Delivery Method Room Air Intake Visit Reasons: f/u anxiety Intake Note: Patient would like to get referral for podiatry and vna services for foot care. Education Teacher Required: No Accompanied by: Spouse Allergies erythromycin base Allergy (Severe, Verified 12/05/23 14:57) tachycardia fentanyl Allergy (Severe, Verified 12/05/23 14:57) drop in vitals hydromorphone [From Dilaudid] Allergy (Severe, Verified 12/05/23 14:57) drop in vitals Penicillins Allergy (Severe, Verified 12/05/23 14:57) tachycardia Medication List - Last Reconciled 12/05/23 by Eddi Kee MD acetaminophen 1,000 mg (2 x 500 mg) PO BID PRN 30 days albuterol sulfate 90 mcg/actuation (Ventolin HFA) 2 puffs inhalation QID PRN alendronate 70 mg PO QWEEK 28 days aspirin 81 mg PO DAILY atorvastatin 40 mg PO BEDTIME 90 days bupropion HCl 75 mg PO DAILY 30 days clonazepam 0.5 mg PO DAILY 30 days diclofenac sodium 1% 4 grams topical QID 30 days diclofenac sodium 1% 4 grams topical QID 30 days fluticasone furoate-vilanterol 100-25 mcg/dose (Breo Ellipta) 1 inh inhalation DAILY furosemide 20 mg PO DAILY levofloxacin 500 mg PO DAILY 10 days nitrofurantoin monohyd/m-cryst 100 mg (Macrobid) 100 mg PO BID 7 days ondansetron 4 mg PO Q8H PRN oxycodone-acetaminophen 2.5-325 mg (Percocet) 1 tab PO BID 30 days potassium chloride ER 10 mEq PO DAILY 90 days promethazine 25 mg PO TID PRN propranolol ER 60 mg PO DAILY 90 days sulfamethoxazole-trimethoprim 800-160 mg (Bactrim DS) 1 tab PO Q12H 10 days tiotropium bromide 2.5 mcg/actuation (Spiriva Respimat) 2 puffs inhalation DAILY Tobacco use date assessed: 10/25/23 Fall risk assessment: No Falls in past year Last assessed Fall Risk: 12/05/23 Dental Screening Dental Screen Date: 08/12/23 HPI f/u anxiety HPI Details 68 y/o female presents to f/u chronic ba ck pain and also anxiety. Continued percocet as we are avoiding NSAIDs. Pt had worsening anxiety - trialing bupropion and pt had clonazepam. Pt notes anxiety somewhat improved but still reports breakthrough anxiety. Ongoing unsteady gait/lower extremity weakness. She reports ongoing urinary frequency/overactive bladder and is requesting referral to urology. [facility] Medical History No pertinent past medical history Lower extremity edema Surgical History No pertinent past surgical history Social History Housing: Apartment Patient Tobacco Use Status: Never used Tobacco e-Cigarette/Vaping Use: Never Used Second Hand Smoke Exposure: No service: No Current occupational status: disabled Current occupational exposures/hazards: No Cognitive needs: No Hearing needs: No Vision needs: No Questionnaire PHQ-9 Over the last 2 weeks, how often have you been bothered by any of the following problems? 1. Little interest or pleasure in doing things: not at all 2. Feeling down, depressed, or hopeless: not at all 3. Trouble falling or staying asleep, or sleeping too much: not at all 4. Feeling tired or having little energy: not at all 5. Poor appetite or overeating: not at all 6. Feeling bad about yourself - or that you are a failure or have let yourself or your family down: not at all 7. Trouble concentrating on things, such as reading the newspaper or watching television: not at all 8. Moving or speaking so slowly that other people could have noticed. Or the opposite - being so fidgety or restless that you have been moving around a lot more than usual: not at all 9. Thoughts that you would be better off or of hurting yourself in some way: not at all Total score: 0 Depression Screening Interpretation: Negative Depression Screening Done: Yes 09496 - PHQ-9 Billing: Yes Source: Developed by Drs. Chon L. KojoKasey jin, Tereso Wright and colleagues, with an educational chelly from [employer]. Thrive Questionnaire Date Thrive assessed: 07/04/22 AMANDA-7 AMB Questionnaire AMANDA-7 Date AMANDA - 7 assessed: 12/05/23 Feeling nervous, anxious, or on edge: 1 = Several days Not being able to stop or control worryin = Not at all Worrying too much about different things: 0 = Not at all Trouble relaxin = Several days Being so restless that it is hard to sit still: 0 = Not at all Becoming easily annoyed or irritable: 0 = Not at all Feeling afraid as if something awful might happen: 0 = Not at all Total AMANDA-7 score (0-4 normal; 5-9 mild; 10-14 moderate; 15-21 severe): 2 Source: Developed by Drs. Chon Varma, Kasey Dewey, Tereso Wright and colleagues, with an educational chelly from [employer]. AMANDA-7 Assessment Billing AMANDA-7 Assessment Tool: AMANDA-7 Assessment 99491 Review of Systems Const Denies chills, Denies fatigue, Denies fever(s), Denies headache(s) and Denies weakness ENT Denies dizziness and Denies headache(s) Card Denies dyspnea Resp Denies cough, Denies dyspnea, Denies wheezing and Denies other (shortness of breath) Musc Denies numbness and Denies tingling Neuro Denies dizziness, Denies headache(s), Denies numbness, Denies tingling and Denies weakness Psych Denies anxiety and Denies depression Endo Denies fatigue Aller/Immun Denies wheezing Physical exam (Primary Care) Vital Signs: Last Vital Signs Temp 97.7 F 12/05/23 14:40 Pulse 68 12/05/23 14:40 Resp 15 12/05/23 14:40 BP 112/74 12/05/23 14:40 Pulse Ox 97 12/05/23 14:40 Oxygen Delivery Method Room Air 12/05/23 14:40 BMI result Body Mass Index 19.4 Tobacco/Smoking Status: Tobacco use Status Tobacco use date assessed 10/25/23 12/05/23 14:40 Patient Tobacco Use Status Never used Tobacco 12/05/23 14:40 e-Cigarette/Vaping Use Never Used 12/05/23 14:40 PHQ-9: PHQ-9 Score PHQ-9: Total score 0 12/05/23 15:08 Depression Screening Interpretation: Negative Thrive Assessment: Date of Thrive Assessment Date Thrive assessed 07/04/22 12/05/23 14:40 Const General: well developed; No acute distress Nutritional Appearance: well nourished Orientation/consciousness: patient oriented x3 HENMT Head: Yes normocephalic and Yes atraumatic Eyes General: appearance normal, both eyes and all related structures Pupils: Equal, round and reactive pupils present EOM: EOMs intact bilaterally Resp Effort & Inspection: normal respiratory effort Neuro General: patient oriented x3 and gait normal Cranial nerves: Yes Equal, round and reactive pupils present Psych Affect: normal affect Assessment and Plan Assessment & Plan (1) Anxiety: Code(s): F41.9 - Anxiety disorder, unspecified Plan: Ongoing?anxiety?and?baseline?somewh at?improved?with?bupropion?but?still?has?breakthrough?anxiety. Will?continue?bupropion?and?continue?clonazepam;?will?increase?clonazepam?to?b.i .d.?p.r.n. (2) Back pain: Code(s): M54.9 - Dorsalgia, unspecified Plan: Ongoing?back?pain.??Tolerable?with?Percocet?and?she?has?a?pain?contract.?? Will?continue?as?prescribed Avoiding?NSAIDs (3) Ingrown toenail: Code(s): L60.0 - Ingrowing nail Plan: Ingrown?nail?with?infection Giving?patient?a?script?for?Bactrim Referred?to?Podiatry?for?overgrown?nails?and?ingrown?nail?care Will?also?ask?the?visiting?nurses?to?help?with?foot?and?jane l?care?as?patient?is?unable?to?reach?feet?due?to?spinal?deformities?and?back?neli n. (4) Dysuria: Code(s): R30.0 - Dysuria Plan: Urinary?frequency,?dysuria?and overactive?bladder Referred?to?Urology (5) Joint pain: Code(s): M25.50 - Pain in unspecified joint Orders: Orders Erythrocyte Sedimentation Rate Today M25.50 - Pain in unspecified joint Rheumatoid Factor Today M25.50 - Pain in unspecified joint Basic Metabolic Panel Today M25.50 - Pain in unspecified joint, Z00.00 - Encounter for general adult medical examination without abnormal findings CRP High Sensitivity Today M25.50 - Pain in unspecified joint Complete Blood Count Auto Diff Today M25.50 - Pain in unspecified joint, Z00.00 - Encounter for general adult medical examination without abnormal findings Referrals Podiatry Referral L60.0 - Ingrowing nail, L60.2 - Onychogryphosis, M40.209 - Unspecified kyphosis, site unspecified, M41.9 - Scoliosis, unspecified, M54.9 - Dorsalgia, unspecified Urology Referral N32.81 - Overactive bladder, R35.0 - Frequency of micturition [facility] Referral L03.115 - Cellulitis of right lower limb, L60.2 - Onychogryphosis, M54.9 - Dorsalgia, unspecified, R26.81 - Unsteadiness on feet, R29.898 - Other symptoms and signs involving the musculoskeletal system, Z91.81 - History of falling Medications: New sulfamethoxazole-trimethoprim 800-160 mg (Bactrim DS) 1 tab PO Q12H 10 days 20 tabs 0RF Changed From clonazepam 0.5 mg PO DAILY 30 days 30 tabs 0RF To clonazepam [employer] Verified. 0.5 mg PO BID 30 days PRN 60 tabs 0RF anxiety/panic From bupropion HCl 75 mg PO DAILY 30 days 30 tabs 2RF To bupropion HCl 75 mg PO DAILY 90 days 90 tabs 2RF Coding Level of Care Code Est Pt Level 4 (66764) Diagnoses Anxiety F41.9 Back pain M54.9 Ingrown toenail L60.0 Dysuria R30.0 Joint pain M25.50 Additional Codes AMANDA-7 Assessment Billing - AMANDA-7 Assessment Tool: AMANDA-7 Assessment 49913 ([id number])
[2023-12-05 14:40] VITALS: BP 112/74; PULSE 68; RESP 15; TEMP 36.5; O2SAT 97; BMI 19.4
== END 2023-12-05 15:34 | disposition home or self-care (01) ==
PROVIDERS: PCP Family Medicine; Visit Provider Family Medicine
DX: M54.9 Dorsalgia, unspecified (principal); F41.9 Anxiety disorder, unspecified; L60.0 Ingrowing nail; R30.0 Dysuria; M25.50 Pain in unspecified joint
CPT/HCPCS: 96127; 99214

== ENCOUNTER 2023-12-05 15:52 | Outpatient (REF) | payer MEDICARE, SELFPAY ==
[2023-12-05 17:34] LABS: MANUAL DIFF FLAG NO
[2023-12-05 17:49] LABS: Basophils Absolute Auto 0.1 X10*3/uL (0.0-0.2); Basophils Percent Auto 1.2 % (0-2); Eosinophils Absolute Auto 0.3 X10*3/uL (0.0-0.4); Eosinophils Percent Auto 3.7 % (0-4); Hematocrit 36.2 % (37.0-47.0); Hemoglobin 11.8 g/dl (12.0-16.0); Imm Gran Abs Auto 0.01 X10*3/uL (0.00-0.03); Imm Gran Pct Auto 0.1 % (0.0-0.4); Lymphocytes Absolute Auto 1.4 X10*3/uL (1.2-4.9); Lymphocytes Percent Auto 21.1 % (20-40); Mean Corpuscular HGB Conc 32.6 g/dl (31.0-35.0); Mean Corpuscular Hemoglobin 32.6 pg (27.0-33.0); Mean Platelet Volume 8.7 fL (9.4-12.3); Monocytes Absolute Auto 0.7 X10*3/uL (0.1-1.2); Monocytes Percent Auto 10.2 % (2-11); Neutrophils Absolute Auto 4.3 x10*3/uL (2.0-8.3); Neutrophils Percent Auto 63.7 % (45-73); Platelet Count 215 X10*3/uL (160-400); Red Blood Count 3.62 X10*6/uL (4.20-5.50); Red Cell Distribution Width 11.7 % (11.0-16.0); White Blood Count 6.8 X10*3/uL (4.8-10.8)
[2023-12-05 18:32] LABS: Anion Gap 11 (12-20); Blood Urea Nitrogen 7 mg/dL (9-16); Calcium 9.6 mg/dL (8.4-10.2); Carbon Dioxide 25 mmol/L (22-29); Chloride 99 mmol/L (96-108); Estimated Glomerular Filt Rate > 60; Glucose Random 66 mg/dL (60-115); Potassium 4.2 mmol/L (3.3-5.1); Sodium 131 mmol/L (135-145)
[2023-12-05 18:33] LABS: Rheumatoid Factor 21.2 IU/mL (<15.0)
[2023-12-05 18:46] LABS: Erythrocyte Sedimentation Rate 11 MM/HR (0-20)
[2023-12-06 22:58] LABS: CRP High Sensitivity 5.4 mg/L
== END 2023-12-05 15:53 | disposition home or self-care (01) ==
LOC: HO.WFDLDS 15:52
PROVIDERS: Visit Provider Family Medicine
DX: Z00.00 Encounter for general adult medical examination without abnormal findings (principal); M25.50 Pain in unspecified joint
CPT/HCPCS: 36415; 80048; 85025; 85652; 86141; 86431

== ENCOUNTER 2024-02-17 12:42 | Outpatient (AMB) | payer MEDICARE, SELFPAY ==
--- NOTE | 2024-02-17 12:55 | MHC.OFFVIS ---
Intake Visit Reasons: urinary frequency/OAB Intake Note: Patient is present for urinary frequency/OAB Urology Medication:none Antibiotic Allergy:penicillin Blood Thinner:aspirin Monitor Tech Required: No Allergies erythromycin base Allergy (Severe, Verified 02/17/24 12:55) tachycardia fentanyl Allergy (Severe, Verified 02/17/24 12:55) drop in vitals hydromorphone [From Dilaudid] Allergy (Severe, Verified 02/17/24 12:55) drop in vitals Penicillins Allergy (Severe, Verified 02/17/24 12:55) tachycardia Medication List - Last Reconciled 02/17/24 by Ashish Bell MD acetaminophen 1,000 mg (2 x 500 mg) PO BID PRN 30 days albuterol sulfate 90 mcg/actuation (Ventolin HFA) 2 puffs inhalation QID PRN alendronate 70 mg PO QWEEK 28 days aspirin 81 mg PO DAILY atorvastatin 40 mg PO BEDTIME 90 days bupropion HCl 75 mg PO DAILY 90 days clonazepam 0.5 mg PO BID PRN 30 days diclofenac sodium 1% 4 grams topical QID 30 days diclofenac sodium 1% 4 grams topical QID 30 days fluticasone furoate-vilanterol 100-25 mcg/dose (Breo Ellipta) 1 inh inhalation DAILY levofloxacin 500 mg PO DAILY 10 days nitrofurantoin monohyd/m-cryst 100 mg (Macrobid) 100 mg PO BID 7 days ondansetron 4 mg PO Q8H PRN oxycodone-acetaminophen 2.5-325 mg (Percocet) 1 tab PO BID 30 days potassium chloride ER 10 mEq PO DAILY 90 days promethazine 25 mg PO TID PRN propranolol ER 60 mg PO DAILY 90 days sulfamethoxazole-trimethoprim 800-160 mg (Bactrim DS) 1 tab PO Q12H 10 days sulfamethoxazole-trimethoprim 800-160 mg (Bactrim DS) 1 tab PO Q12H 10 days tiotropium bromide 2.5 mcg/actuation (Spiriva Respimat) 2 puffs inhalation DAILY vibegron (Gemtesa) 75 mg PO DAILY HPI Comments Details: Sho is here with her Alexander for evaluation due to urinary incontinence. The patient states that she has noted that when she gets an urge sometimes she may not make it to the bathroom before leaking on herself. She has been wearing pads daily. She states that she gets recurrent urinary tract infections. She states that when she was younger her left kidney was removed due to infection that was not able to be completely treated with antibiotics as it kept recurring. She states she was told that her kidney did not develop properly. She states she has had a hysterectomy and part of her lung removed. I have discussed trial of anti muscarinic for her urinary symptoms and we will have her follow-up for office cystoscopy renal and bladder ultrasound ordered. [facility] Medical History No pertinent past medical history Lower extremity edema Surgical History No pertinent past surgical history Social History Housing: Apartment Patient Tobacco Use Status: Never used Tobacco e-Cigarette/Vaping Use: Never Used Second Hand Smoke Exposure: No service: No Current occupational status: disabled Current occupational exposures/hazards: No Cognitive needs: No Hearing needs: No Vision needs: No Review of Systems Const All systems reviewed & are unremarkable except as noted in HPI and below Reports no additional complaints Eyes Reports no additional complaints ENT Reports no additional complaints Card Reports no additional complaints Resp Reports no additional complaints GI Reports no additional complaints Reports as per HPI Musc Reports no additional complaints Skin/Breast Reports system reviewed and no additional complaints, except as documented Neuro Reports no additional complaints Psych Reports no additional complaints Endo Reports no additional complaints Augustin/Lymph Reports no additional complaints Aller/Immun Reports no additional complaints Physical Exam Const General: cooperative and no acute distress Orientation/consciousness: patient oriented x3 HEENT Head: Yes normal to inspection, Yes normocephalic and Yes atraumatic Eyes Conjunctivae: conjunctivae normal Neck Neck: Yes normal visual inspection and Yes trachea midline Resp Effort & Inspection: normal respiratory effort GI Inspection: Yes normal to inspection Back/Spine/Pelvis Other: Visibly there appears to be a type of curvature to the spine due to her posture. Neuro General: patient oriented x3 Psych Appearance: grossly normal Results AMB Urinalysis, Automated UA Leukoctes 0 Ana Maria/uL Last Edit by SALO Simon on 02/17/24 14:12 UA Nitrite Negative Last Edit by SALO Simon on 02/17/24 14:12 UA Urobilinogen 0.2 mg/dL Last Edit by Checo Tubbs [facility] on 02/17/24 14:12 UA Protein 0 mg/dL Last Edit by Checo Tubbs [facility] on 02/17/24 14:12 UA pH 6.0 Last Edit by Checo Tubbs [facility] on 02/17/24 14:12 UA Blood 0 Igor/uL Last Edit by Checo Tubbs [facility] on 02/17/24 14:12 UA Specific [place] 1.010 Last Edit by Checo Tubbs [facility] on 02/17/24 14:12 UA Ketone Negative Last Edit by Checo Tubbs [facility] on 02/17/24 14:12 UA Bilirubin 0 mg/dL Last Edit by Checo Tubbs [facility] on 02/17/24 14:12 UA Glucose 0 mg/dL Last Edit by Checo Tubbs [facility] on 02/17/24 14:12 Results Reviewed Results Reviewed: Laboratory Last Values Urine pH (Auto) 6.0 02/17/24 14:10 Specific [place] (Auto) 1.010 02/17/24 14:10 Urine Protein (Auto) 0 mg/dL 02/17/24 14:10 Glucose (UA)(Auto) 0 mg/dL 02/17/24 14:10 Urine Ketones (Auto) Negative 02/17/24 14:10 Urine Blood (Auto) 0 Igor/uL 02/17/24 14:10 Urine Nitrite (Auto) Negative 02/17/24 14:10 Urine Bilirubin (Auto) 0 mg/dL 02/17/24 14:10 Urine Urobilinogen (Auto) 0.2 mg/dL 02/17/24 14:10 Leukocyte Esterase (Auto) 0 Ana Maria/uL 02/17/24 14:10 Assessment & Plan Assessment & Plan (1) Recurrent UTI: Code(s): N39.0 - Urinary tract infection, site not specified Category: Medical (2) Urinary urgency: Code(s): R39.15 - Urgency of urination Category: Medical (3) Urinary incontinence: Code(s): R32 - Unspecified urinary incontinence Category: Medical (4) Solitary kidney, acquired: Code(s): Z90.5 - Acquired absence of kidney Category: Medical Plan Gemtesa, renal/bladder ultrasound follow-up office cystoscopy Orders: Orders AMB Urinalysis Automated Today Z13.9 - Encounter for screening, unspecified US retroperitoneal comp Today N39.0 - Urinary tract infection, site not specified, R35.0 - Frequency of micturition Medications: New vibegron (Gemtesa) 75 mg PO DAILY 30 tabs 3RF Patient Instructions: The patient had an opportunity to ask questions regarding treatment plan. The patient expressed understanding and agreement with the above treatment plan. The patient is aware they should contact our office by phone for worsening of their current condition or the appearance of new symptoms. Compliance is encouraged with any medications and followup testing that is ordered. It is a privilege to be allowed the opportunity to participate in the urologic care of your patient. If you have any questions or concerns regarding treatment for the above conditions please do not hesitate to contact me. The office telephone contact is [phone]. This note is constructed in part using voice recognition software. While every effort has been made to ensure accuracy networking administrator errors may have been included. Yours sincerely, Ashish Bell MD Coding Level of Care Code New Pt Level 4 (17309) Diagnoses Recurrent UTI N39.0 Urinary urgency R39.15 Urinary incontinence R32 Solitary kidney, acquired Z90.5
== END 2024-02-17 13:52 | disposition home or self-care (01) ==
PROVIDERS: PCP Family Medicine; Visit Provider Urology
DX: N39.0 Urinary tract infection, site not specified (principal); R39.15 Urgency of urination; R32 Unspecified urinary incontinence; Z90.5 Acquired absence of kidney; Z13.9 Encounter for screening, unspecified
CPT/HCPCS: 99204

== ENCOUNTER → 2024-02-17 12:42 | Outpatient (BNVA) | payer MEDICARE, SELFPAY | PROVIDERS: PCP Family Medicine; Visit Provider Urology | DX: R32 Unspecified urinary incontinence (principal); N39.0 Urinary tract infection, site not specified; R39.15 Urgency of urination; Z90.5 Acquired absence of kidney | CPT/HCPCS: 81003; 99202 ==

== ENCOUNTER 2024-03-12 13:22 | Outpatient (AMB) | payer MEDICARE, SELFPAY ==
--- NOTE | 2024-03-12 13:26 | A.OFFPC_ITS ---
Vital Signs 03/12/24 13:35 Height 5 ft 4 in Weight 115 lb 6 oz BMI 19.8 BP 118/72 Blood Pressure Location Lt brachial Position Sitting Respiration 14 Pulse 67 Pulse Source Pulse Oximeter Temp 98.6 F Temp Source Temporal Artery Scan Pulse Oximetry (%) 95 Oxygen Delivery Method Room Air Intake Visit Reasons: follow up labs - see comments Intake Note: f/u labs Allergies erythromycin base Allergy (Severe, Verified 03/12/24 13:30) tachycardia fentanyl Allergy (Severe, Verified 03/12/24 13:30) drop in vitals hydromorphone [From Dilaudid] Allergy (Severe, Verified 03/12/24 13:30) drop in vitals Penicillins Allergy (Severe, Verified 03/12/24 13:30) tachycardia Tobacco use date assessed: 10/25/23 Dental Screening Dental Screen Date: 08/12/23 HPI follow up labs - see comments HPI Details 69 y/o female presents to f/u chronic co nditions including lab work for polyarthralgias, primarily hand and back pain. Labs unrevealing. Has complaints of bruising and a rash. Had noticed the bruising last night. She states she had been scratching herself from a rash. HPI Comments History of Present Illness Details Documentation assistance for Eddi Kee MD, was provided by Paddy Neri, Hospital Sales Representative on 03/12/2024 at 1:50 PM EST. I, Dr. Kee, have read, observed, and verified documentation. [facility], LATER [facility] Medical History No pertinent past medical history Lower extremity edema Surgical History No pertinent past surgical history Social History Housing: Apartment Patient Tobacco Use Status: Never used Tobacco e-Cigarette/Vaping Use: Never Used Second Hand Smoke Exposure: No service: No Current occupational status: disabled Current occupational exposures/hazards: No Cognitive needs: No Hearing needs: No Vision needs: No Questionnaire Thrive Questionnaire Date Thrive assessed: 07/04/22 AMANDA-7 AMB Questionnaire AMANDA-7 Date AMANDA - 7 assessed: 12/05/23 Source: Developed by Drs. Chon Varma, Kasey Dewey, Tereso Wright and colleagues, with an educational chelly from [employer]. Review of Systems Const Denies chills, Denies fatigue, Denies fever(s), Denies headache(s) and Denies weakness ENT Denies dizziness and Denies headache(s) Card Denies dyspnea Resp Denies cough, Denies dyspnea, Denies wheezing and Denies other (shortness of breath) Musc Denies numbness and Denies tingling Neuro Denies dizziness, Denies headache(s), Denies numbness, Denies tingling and Denies weakness Psych Denies anxiety and Denies depression Endo Denies fatigue Aller/Immun Denies wheezing Physical exam (Primary Care) Vital Signs: Last Vital Signs Temp 98.6 F 03/12/24 13:35 Pulse 67 03/12/24 13:35 Resp 14 03/12/24 13:35 BP 118/72 03/12/24 13:35 Pulse Ox 95 03/12/24 13:35 Oxygen Delivery Method Room Air 03/12/24 13:35 BMI result Body Mass Index 19.8 Tobacco/Smoking Status: Tobacco use Status Tobacco use date assessed 10/25/23 03/12/24 13:27 Patient Tobacco Use Status Never used Tobacco 03/12/24 13:27 e-Cigarette/Vaping Use Never Used 03/12/24 13:27 Thrive Assessment: Date of Thrive Assessment Date Thrive assessed 07/04/22 03/12/24 13:27 Const General: well developed; No acute distress Nutritional Appearance: well nourished Orientation/consciousness: patient oriented x3 HENMT Head: Yes normocephalic and Yes atraumatic Eyes General: appearance normal, both eyes and all related structures Pupils: Equal, round and reactive pupils present EOM: EOMs intact bilaterally Resp Effort & Inspection: normal respiratory effort Neuro General: patient oriented x3 and gait normal Cranial nerves: Yes Equal, round and reactive pupils present Psych Affect: normal affect Coding Level of Care Code Est Pt Level 4 (68259) Diagnoses Polyarthralgia M25.50 Back pain M54.9 Scoliosis M41.9 Rash R21 Bruising T14.8XXA Hordeolum of right eye H00.013 Assessment & Plan Assessment & Plan (1) Polyarthralgia: Code(s): M25.50 - Pain in unspecified joint Category: Medical Plan: Ongoing?polyarthralgias Patient?has?mild?elevation?in?rheumatoid?factor?and?CRP?though?negative?ESR Patient?is?concerned?regarding?rheumato id?arthritis?though?I?explained?to?patient?that?I?am?not?convinced?that?that?is? her?underlying?problem. Will?refer?her?to?rheumatology?at?her?request (2) Back pain: Code(s): M54.9 - Dorsalgia, unspecified Category: Medical Plan: Chronic?back?pain?in?patient?with?severe kyphosis?and?scoliosis She?had?been?offered?injection?therapy?and?declined?this?in?the?past. Had?a?long?conversation?about?risks?versus?benefits?for?this?procedure. She?would?lik e?to?be?referred?back?to?[facility]?s[facility]?to?reconsider?this. Will?make?referral She?is?on?opioid?medication?and?fairly?stable?with?this. Avoiding?NSAIDs?due?to?single?kidney?and?other?factors (3) Scoliosis: Code(s): M41.9 - Scoliosis, unspecified Category: Medical Plan: As?above (4) Rash: Code(s): R21 - Rash and other nonspecific skin eruption Category: Medical Plan: Patient?has?had?recent?rash?which?appears?as?contact?dermatitis Rinse?close?twice?and?wear?loose?clothing Cool?showers Call?or?return?to?office?if?not?improving (5) Bruising: Code(s): T14.8XXA - Other injury of unspecified body region, initial encounter Category: Medical Plan: Bruising?only?on?arms?in?linear?streaks. As?above,?patient?has?had?rash?and?this?perri ears?to?be?bruising?secondary?to?scratching.??No?other?forms?of?bleeding?or?brui sing. (6) Hordeolum of right eye: Code(s): H00.013 - Hordeolum externum right eye, unspecified eyelid Category: Medical Plan: Can?use?ofloxacin Medications: New ofloxacin 0.3% 1 drp ophthalmic (eye) QID 10 days 5 mL 0RF Refilled 2 clonazepam MassPat Verified. 0.5 mg PO BID 30 days PRN 60 tabs 0RF anxiety/panic oxycodone-acetaminophen 2.5-325 mg (Percocet) MAssPat Verified. Partial Fill upon patient request. 1 tab PO BID 30 days 60 tabs 0RF pain
[2024-03-12 13:35] VITALS: BP 118/72; PULSE 67; RESP 14; TEMP 37; O2SAT 95; BMI 19.8
== END 2024-03-12 14:24 | disposition home or self-care (01) ==
PROVIDERS: PCP Family Medicine; Visit Provider Family Medicine
DX: M25.50 Pain in unspecified joint (principal); M54.9 Dorsalgia, unspecified; M41.9 Scoliosis, unspecified; R21 Rash and other nonspecific skin eruption; T14.8XXA Other injury of unspecified body region, initial encounter; H00.013 Hordeolum externum right eye, unspecified eyelid

== ENCOUNTER → 2024-03-12 13:22 | Outpatient (BNVA) | payer MEDICARE, SELFPAY | PROVIDERS: PCP Family Medicine; Visit Provider Family Medicine | DX: M25.50 Pain in unspecified joint (principal); M54.9 Dorsalgia, unspecified; M41.9 Scoliosis, unspecified; R21 Rash and other nonspecific skin eruption; T14.8XXA Other injury of unspecified body region, initial encounter; H00.013 Hordeolum externum right eye, unspecified eyelid; X58.XXXA Exposure to other specified factors, initial encounter; Y93.9 Activity, unspecified; Y92.9 Unspecified place or not applicable; Y99.9 Unspecified external cause status | CPT/HCPCS: 99212 ==

== ENCOUNTER 2024-04-27 13:40 | Outpatient (REF) | payer MEDICARE, SELFPAY | END 2024-04-27 13:41 | disposition home or self-care (01) | LOC: HO.US 13:40 | PROVIDERS: PCP Family Medicine; Visit Provider Urology | DX: N39.0 Urinary tract infection, site not specified (principal); R35.0 Frequency of micturition | CPT/HCPCS: 76770 ==

== ENCOUNTER → 2024-04-27 13:43 | Outpatient (BNV) | payer MEDICARE, SELFPAY | PROVIDERS: PCP Family Medicine; Visit Provider Radiology Diagnostic Radiology | DX: N28.1 Cyst of kidney, acquired (principal) | CPT/HCPCS: 76770 ==

== ENCOUNTER 2024-06-16 14:30 | Outpatient (AMB) | payer MEDICARE, SELFPAY ==
--- NOTE | 2024-06-16 14:31 | MHC.PC.OV ---
Vital Signs 06/16/24 14:39 Height 5 ft 4 in Weight 108 lb BMI 18.5 BP 144/75 H Blood Pressure Location Lt brachial Position Sitting Respiration 13 Pulse 63 Pulse Source Pulse Oximeter Temp 97.5 F Temp Source Skin Pulse Oximetry (%) 99 Oxygen Delivery Method Room Air Intake Visit Reasons: f/u polyarthralgia Intake Note: follow up Seasonal Tax Preparer Required: No Allergies erythromycin base Allergy (Severe, Verified 06/16/24 14:31) tachycardia fentanyl Allergy (Severe, Verified 06/16/24 14:31) drop in vitals hydromorphone [From Dilaudid] Allergy (Severe, Verified 06/16/24 14:31) drop in vitals Penicillins Allergy (Severe, Verified 06/16/24 14:31) tachycardia Medication List - Last Reconciled 06/16/24 by Eddi Kee MD acetaminophen 1,000 mg (2 x 500 mg) PO BID PRN 30 days albuterol sulfate 90 mcg/actuation (Ventolin HFA) 2 puffs inhalation QID PRN alendronate 70 mg PO QWEEK 28 days aspirin 81 mg PO DAILY atorvastatin 40 mg PO BEDTIME 90 days bupropion HCl 75 mg PO DAILY 90 days clonazepam 0.5 mg PO BID PRN 30 days diclofenac sodium 1% 4 grams topical QID 30 days diclofenac sodium 1% 4 grams topical QID 30 days fluticasone furoate-vilanterol 100-25 mcg/dose (Breo Ellipta) 1 inh inhalation DAILY levofloxacin 500 mg PO DAILY 10 days ofloxacin 0.3% 1 drp ophthalmic (eye) QID 10 days ondansetron 4 mg PO Q8H PRN oxycodone-acetaminophen 2.5-325 mg (Percocet) 1 tab PO BID 30 days potassium chloride ER 10 mEq PO DAILY 90 days promethazine 25 mg PO TID PRN propranolol ER 60 mg PO DAILY 90 days sulfamethoxazole-trimethoprim 800-160 mg (Bactrim DS) 1 tab PO Q12H 10 days sulfamethoxazole-trimethoprim 800-160 mg (Bactrim DS) 1 tab PO Q12H 10 days tiotropium bromide 2.5 mcg/actuation (Spiriva Respimat) 2 puffs inhalation DAILY vibegron (Gemtesa) 75 mg PO DAILY Tobacco use date assessed: 10/25/23 Dental Screening Dental Screen Date: 08/12/23 HPI f/u polyarthralgia HPI Details 69 y/o female presents to f/u polyarthalgia. Had complaints of COPD exacerbation last month. Ongoing polyarthralgia. She notes rheumatology has not contacted her yet. She reports constipation. Blood pressure today 144/75, 63p. [facility] Medical History No pertinent past medical history Lower extremity edema Surgical History No pertinent past surgical history Social History Housing: Apartment Patient Tobacco Use Status: Never used Tobacco e-Cigarette/Vaping Use: Never Used Second Hand Smoke Exposure: No service: No Current occupational status: disabled Current occupational exposures/hazards: No Cognitive needs: No Hearing needs: No Vision needs: No Questionnaire PHQ-9 Over the last 2 weeks, how often have you been bothered by any of the following problems? 48601 - PHQ-9 Billing: Patient declined-do not bill Source: Developed by Drs. Chon Varma, Kasey Dewey, Tereso Wright and colleagues, with an educational chelly from [employer]. Thrive Questionnaire Date Thrive assessed: 06/16/24 I am a: Patient What is your living situation today?: I have a steady place to live Within the past 12 months, did the food you bought not last and you didn't have the money to get more?: I choose not to answer this question Within the past 12 months, did you worry whether your food would run out before you got money to buy more?: I choose not to answer this question Do you have trouble paying for medicines?: I choose not to answer this question Do you have trouble getting transportation to medical appointments?: I choose not to answer this question Do you have trouble paying your heating and electricity bill?: I choose not to answer this question Do you have trouble taking care of your child, family member or friend?: I choose not to answer this question Do you have trouble with day-to-day activities such as bathing, preparing meals, shopping, managing finances, etc.?: I choose not to answer this question Are you currently unemployed and looking for a job?: I choose not to answer this question Are you interested in more education?: I choose not to answer this question Please select the resources that you would like help with: None Currently or been in a relationship where the following occur: No concerns reported THRIVE Score: 0 AUDIT C Alcohol Use Questionnaire (AUDIT-C) 1. How often do you have a drink containing alcohol?: Monthly or less 2. How many drinks containing alcohol do you have on a typical day when you are drinking?: 1 or 2 3. How often do you have six or more drinks on one occasion?: Never Total Score: 1 AMANDA-7 AMB Questionnaire AMANDA-7 Date AMANDA - 7 assessed: 06/16/24 Feeling nervous, anxious, or on edge: 1 = Several days Not being able to stop or control worryin = Not at all Worrying too much about different things: 0 = Not at all Trouble relaxin = Not at all Being so restless that it is hard to sit still: 0 = Not at all Becoming easily annoyed or irritable: 0 = Not at all Feeling afraid as if something awful might happen: 0 = Not at all Total AMANDA-7 score (0-4 normal; 5-9 mild; 10-14 moderate; 15-21 severe): 1 Source: Developed by Drs. Chon Varma, Kasey Dewey, Tereso Wright and colleagues, with an educational chelly from [employer]. AMANDA-7 Assessment Billing AMANDA-7 Assessment Tool: AMANDA-7 Assessment 38565 Review of Systems Const Denies chills, Denies fatigue, Denies fever(s), Denies headache(s) and Denies weakness ENT Denies dizziness and Denies headache(s) Card Denies dyspnea Resp Denies cough, Denies dyspnea, Denies wheezing and Denies other (shortness of breath) Musc Denies numbness and Denies tingling Neuro Denies dizziness, Denies headache(s), Denies numbness, Denies tingling and Denies weakness Psych Denies anxiety and Denies depression Endo Denies fatigue Aller/Immun Denies wheezing Physical exam (Primary Care) Vital Signs: Last Vital Signs Temp 97.5 F 06/16/24 14:39 Pulse 63 06/16/24 14:39 Resp 13 06/16/24 14:39 BP 144/75 H 06/16/24 14:39 Pulse Ox 99 06/16/24 14:39 Oxygen Delivery Method Room Air 06/16/24 14:39 BMI result Body Mass Index 18.5 Tobacco/Smoking Status: Tobacco use Status Tobacco use date assessed 10/25/23 06/16/24 14:33 Patient Tobacco Use Status Never used Tobacco 06/16/24 14:33 e-Cigarette/Vaping Use Never Used 06/16/24 14:33 Thrive Assessment: Date of Thrive Assessment Date Thrive assessed 06/16/24 06/16/24 14:33 Currently or been in a relationship where the following occur: No concerns reported Const General: well developed; No acute distress Nutritional Appearance: well nourished Orientation/consciousness: patient oriented x3 HENMT Head: Yes normocephalic and Yes atraumatic Eyes General: appearance normal, both eyes and all related structures Pupils: Equal, round and reactive pupils present EOM: EOMs intact bilaterally Resp Effort & Inspection: normal respiratory effort Neuro General: patient oriented x3 and gait normal Cranial nerves: Yes Equal, round and reactive pupils present Psych Affect: normal affect Coding Level of Care Code Est Pt Level 4 (29308) Diagnoses Polyarthralgia M25.50 COPD (chronic obstructive pulmonary disease) J44.9 Constipation K59.00 Hypertension I10 Lower extremity edema R60.0 History of CHF (congestive heart failure) Z86.79 Additional Codes AMANDA-7 Assessment Billing - AMANDA-7 Assessment Tool: AMANDA-7 Assessment 14111 ([id number]) Assessment & Plan Assessment & Plan (1) Polyarthralgia: Code(s): M25.50 - Pain in unspecified joint Category: Medical Plan: Ongoing?polyarthralgia?and?chronic?pain. Had?referred?her?to?Rheumatology?but?she?was?not?contacted. He?does?have?some?elevated?acute?phase?reactants?but?doubt?rheumatoid?arthritis?as?patient?proposed. Referred back to rheumatology?at patient?request (2) COPD (chronic obstructive pulmonary disease): Code(s): J44.9 - Chronic obstructive pulmonary disease, unspecified Category: Medical Plan: Recent?COPD?exacerbation. Lungs?are?clear?to?auscultation?today. No?complaints Stable Continue?inhaled?medications Follow-up?with?Pulmonary?recommended (3) Constipation: Code(s): K59.00 - Constipation, unspecified Category: Medical Plan: Patient?has?complaints?of?significant?constipation. 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 Patient?is?only?drinking?about?16?oz?of?water?day Advised?her?to?increase?this?to?about?64?oz?water?day?in?continue?MiraLax. Can?also?add?some?prune?juice?or?prunes. Follow-up?with?Gastroenterology?as?recommended I?did?discuss?with?her?that?her?opioid?medication?is?1?of?the?reasons?that?she?is?at?risk?constipation.??Keep Well?hydrated. (4) Hypertension: Code(s): I10 - Essential (primary) hypertension Category: Medical Plan: Patient?notes?that?her?blood?pressures?have?been?high?lately She?is?on?propranolol?and?has?been?this?quite?some?time. Will?give?her?hydrochlorothiazide?as?she?notes?that?she?also?has?some?lower?extremity?edema?and?has?gained?weight?during?her?days Advised?her?to?avoid?salt/sodium?continue?hydrating?well.??Will?give?hydrochlorothiazide?to?help?blood?pressure?and?also?lower?extremity?edema. (5) Lower extremity edema: Code(s): R60.0 - Localized edema Category: Medical Plan: As?above,?start?hydrochlorothiazide Also?advised?elevating?legs,?avoiding?salt/sodium?in?using?OTC?compression?stockings Will?give?her?prescription?stockings?or?use?a?small?amount?of?a?loop?diuretic?if?needed (6) History of CHF (congestive heart failure): Code(s): Z86.79 - Personal history of other diseases of the circulatory system Category: Medical Plan: Lungs?are?clear?today No?edema?in?lower?extremities Patient?sleeps?on?2?pillows.??Does?not?appear?to?be?significant?failure?today. Avoid?salt/sodium Continue?current?medications Will?follow Medications: New hydrochlorothiazide 25 mg PO QAM 90 days 90 tabs 3RF
[2024-06-16 14:39] VITALS: BP 144/75; PULSE 63; RESP 13; TEMP 36.4; O2SAT 99; BMI 18.5
== END 2024-06-16 15:28 | disposition home or self-care (01) ==
PROVIDERS: PCP Family Medicine; Visit Provider Family Medicine
DX: M25.50 Pain in unspecified joint (principal); J44.9 Chronic obstructive pulmonary disease, unspecified; K59.00 Constipation, unspecified; I10 Essential (primary) hypertension; R60.0 Localized edema; Z86.79 Personal history of other diseases of the circulatory system

== ENCOUNTER → 2024-06-16 14:30 | Outpatient (BNVA) | payer MEDICARE, SELFPAY | PROVIDERS: PCP Family Medicine; Visit Provider Family Medicine | DX: M25.50 Pain in unspecified joint (principal); J44.9 Chronic obstructive pulmonary disease, unspecified; K59.00 Constipation, unspecified; R60.0 Localized edema; I10 Essential (primary) hypertension; Z86.79 Personal history of other diseases of the circulatory system | CPT/HCPCS: 96127; 99212 ==

== ENCOUNTER → 2024-06-19 14:03 | Outpatient (BNVA) | payer MEDICARE, SELFPAY | PROVIDERS: PCP Family Medicine; Visit Provider Urology | DX: R39.81 Functional urinary incontinence (principal); Z90.5 Acquired absence of kidney | CPT/HCPCS: 81003; 99212 ==

== ENCOUNTER 2024-08-17 14:45 | Outpatient (AMB) | payer MEDICARE, SELFPAY ==
--- NOTE | 2024-08-17 14:55 | MHC.PC.OV ---
Vital Signs 08/17/24 15:04 Height 5 ft 4 in Weight 100 lb 2 oz BMI 17.2 BP 106/70 Blood Pressure Location Lt brachial Position Sitting Respiration 14 Pulse 75 Pulse Source Pulse Oximeter Temp 98.5 F Temp Source Oral Pulse Oximetry (%) 95 Oxygen Delivery Method Room Air Intake Visit Reasons: f/u hypertension, chronic conditions Intake Note: follow up htn and edema in her feet Candy Attendant Required: No Allergies erythromycin base Allergy (Severe, Verified 08/17/24 14:58) tachycardia fentanyl Allergy (Severe, Verified 08/17/24 14:58) drop in vitals hydromorphone [From Dilaudid] Allergy (Severe, Verified 08/17/24 14:58) drop in vitals Penicillins Allergy (Severe, Verified 08/17/24 14:58) tachycardia Medication List - Last Reconciled 08/17/24 by Eddi Kee MD acetaminophen 1,000 mg (2 x 500 mg) PO BID PRN 30 days albuterol sulfate 90 mcg/actuation (Ventolin HFA) 2 puffs inhalation QID PRN alendronate 70 mg PO QWEEK 28 days atorvastatin 40 mg PO BEDTIME 90 days bupropion HCl 75 mg PO DAILY 90 days clonazepam 0.5 mg PO BID PRN 30 days diclofenac sodium 1% 4 grams topical QID 30 days diclofenac sodium 1% 4 grams topical QID 30 days fluticasone furoate-vilanterol 100-25 mcg/dose (Breo Ellipta) 1 inh inhalation DAILY ondansetron 4 mg PO Q8H PRN oxycodone-acetaminophen 2.5-325 mg (Percocet) 1 tab PO BID 30 days promethazine 25 mg PO TID PRN propranolol ER 60 mg PO DAILY 90 days tiotropium bromide 2.5 mcg/actuation (Spiriva Respimat) 2 puffs inhalation DAILY Tobacco use date assessed: 10/25/23 Dental Screening Dental Screen Date: 08/12/23 HPI f/u hypertension, chronic conditions HPI Details 69 y/o female presents to f/u hypertension, chronic conditions. Had started her on hydrochlorothiazide for blood pressure and also mild lower extremity edema. Blood pressure today 106/70, 75p. She is on propranolol 60mg daily, HCTZ 25mg. They report ongoing lower extremity swelling but they do note this has been improving. Has also been wearing non prescription compression stockings. Reports constipation. HPI Comments History of Present Illness Details Documentation assistance for Eddi Kee MD, was provided by Paddy Neri,? Steward/Stewardess Deck on 08/17/2024 at 3:17 PM EST. I, Dr. Kee, have read, observed, and verified documentation. ?? [facility] Medical History No pertinent past medical history Lower extremity edema Surgical History No pertinent past surgical history Social History Housing: Apartment Patient Tobacco Use Status: Never used Tobacco e-Cigarette/Vaping Use: Never Used Second Hand Smoke Exposure: No service: No Current occupational status: disabled Current occupational exposures/hazards: No Cognitive needs: No Hearing needs: No Vision needs: No Questionnaire PHQ-9 Over the last 2 weeks, how often have you been bothered by any of the following problems? 1. Little interest or pleasure in doing things: nearly every day 2. Feeling down, depressed, or hopeless: not at all 3. Trouble falling or staying asleep, or sleeping too much: not at all 4. Feeling tired or having little energy: several days 5. Poor appetite or overeating: not at all 6. Feeling bad about yourself - or that you are a failure or have let yourself or your family down: not at all 7. Trouble concentrating on things, such as reading the newspaper or watching television: not at all 8. Moving or speaking so slowly that other people could have noticed. Or the opposite - being so fidgety or restless that you have been moving around a lot more than usual: not at all 9. Thoughts that you would be better off or of hurting yourself in some way: not at all Total score: 4 Source: Developed by Drs. Chon Varma, Kasey Dewey, Tereso Wright and colleagues, with an educational chelly from [employer]. Thrive Questionnaire Date Thrive assessed: 06/09/24 I am a: Patient What is your living situation today?: I have a steady place to live Within the past 12 months, did the food you bought not last and you didn't have the money to get more?: I choose not to answer this question Within the past 12 months, did you worry whether your food would run out before you got money to buy more?: I choose not to answer this question Do you have trouble paying for medicines?: I choose not to answer this question Do you have trouble getting transportation to medical appointments?: I choose not to answer this question Do you have trouble paying your heating and electricity bill?: I choose not to answer this question Do you have trouble taking care of your child, family member or friend?: I choose not to answer this question Do you have trouble with day-to-day activities such as bathing, preparing meals, shopping, managing finances, etc.?: I choose not to answer this question Are you currently unemployed and looking for a job?: I choose not to answer this question Are you interested in more education?: I choose not to answer this question Please select the resources that you would like help with: None Currently or been in a relationship where the following occur: No concerns reported THRIVE Score: 0 AMANDA-7 AMB Questionnaire AMANDA-7 Date AMANDA - 7 assessed: 06/16/24 Source: Developed by Drs. Chon Varma, Kasey Dewey, Tereso Wright and colleagues, with an educational chelly from [employer]. Review of Systems Const Denies chills, Denies fatigue, Denies fever(s), Denies headache(s) and Denies weakness ENT Denies dizziness and Denies headache(s) Card Denies dyspnea Resp Denies cough, Denies dyspnea, Denies wheezing and Denies other (shortness of breath) GI Reports constipation Musc Denies numbness and Denies tingling Neuro Denies dizziness, Denies headache(s), Denies numbness, Denies tingling and Denies weakness Psych Denies anxiety and Denies depression Endo Denies fatigue Aller/Immun Denies wheezing Physical exam (Primary Care) Vital Signs: Last Vital Signs Temp 98.5 F 08/17/24 15:04 Pulse 75 08/17/24 15:04 Resp 14 08/17/24 15:04 BP 106/70 08/17/24 15:04 Pulse Ox 95 08/17/24 15:04 Oxygen Delivery Method Room Air 08/17/24 15:04 BMI result Body Mass Index 17.2 Tobacco/Smoking Status: Tobacco use Status Tobacco use date assessed 10/25/23 08/17/24 15:10 Patient Tobacco Use Status Never used Tobacco 08/17/24 15:10 e-Cigarette/Vaping Use Never Used 08/17/24 15:10 PHQ-9: PHQ-9 Score PHQ-9: Total score 4 08/17/24 15:10 Thrive Assessment: Date of Thrive Assessment Date Thrive assessed 06/09/24 08/17/24 15:10 Currently or been in a relationship where the following occur: No concerns reported Const General: well developed; No acute distress Nutritional Appearance: well nourished Orientation/consciousness: patient oriented x3 HENMT Head: Yes normocephalic and Yes atraumatic Eyes General: appearance normal, both eyes and all related structures Pupils: Equal, round and reactive pupils present EOM: EOMs intact bilaterally Resp Effort & Inspection: normal respiratory effort Neuro General: patient oriented x3 and gait normal Cranial nerves: Yes Equal, round and reactive pupils present Psych Affect: normal affect Coding Level of Care Code Est Pt Level 4 (79616) Diagnoses Hypertension I10 Lower extremity edema R60.0 Constipation K59.00 Screening for colon cancer Z12.11 Assessment & Plan Assessment & Plan (1) Hypertension: Code(s): I10 - Essential (primary) hypertension Category: Medical Plan: Blood?pressure?now?well?controlled.??Goal?is?less?than?130/80 Patient?says?she?did?not?tolerate?hydrochlorothiazide?but?that?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 She?will?call?to?let?us?know?what?medications?so?we?can?update?her?med?list. Continue?current?medication?regimen (2) Lower extremity edema: Code(s): R60.0 - Localized edema Category: Medical Plan: This?is?improved Continue?current?medications Watch?salt/sodium Elevate?legs Continue?diabetic?stockings (3) Constipation: Code(s): K59.00 - Constipation, unspecified Category: Medical Plan: Ongoing?significant?constipation. Continue?good?hydration Decrease?in?soluble?fiber.??Use?soluble?fiber?and?I?will?send?script?for?FiberCon Continue?MiraLax?as?needed (4) Screening for colon cancer: Code(s): Z12.11 - Encounter for screening for malignant neoplasm of colon Category: Medical Plan: Patient?had?Cologuard?test?was?negative Up-to-date Orders: Orders Complete Blood Count Auto Diff Today Z00.00 - Encounter for general adult medical examination without abnormal findings Microalbumin, Random (w Creat) Today I10 - Essential (primary) hypertension UA and rflx microscopic Today Z00.00 - Encounter for general adult medical examination without abnormal findings Lipid Panel 1 Month Z00.00 - Encounter for general adult medical examination without abnormal findings UA and rflx microscopic 1 Month Z00.00 - Encounter for general adult medical examination without abnormal findings Comprehensive [place]. Panel Fast Today Z00.00 - Encounter for general adult medical examination without abnormal findings Lipid Panel Today Z00.00 - Encounter for general adult medical examination without abnormal findings TSH reflex Free T4 Today Z00.00 - Encounter for general adult medical examination without abnormal findings Comprehensive [place]. Panel Fast 1 Month Z00.00 - Encounter for general adult medical examination without abnormal findings Complete Blood Count Auto Diff 1 Month Z00.00 - Encounter for general adult medical examination without abnormal findings Microalbumin, Random (w Creat) 1 Month I10 - Essential (primary) hypertension TSH reflex Free T4 1 Month Z00.00 - Encounter for general adult medical examination without abnormal findings Medications: New calcium polycarbophil (FiberCon) 625 mg PO DAILY 30 days 30 tabs 2RF Discontinued hydrochlorothiazide Discontinued Reason: Doctor's Order 25 mg PO QAM 90 days 90 tabs 3RF
[2024-08-17 15:04] VITALS: BP 106/70; PULSE 75; RESP 14; TEMP 36.9; O2SAT 95; BMI 17.2
--- OUTSIDE RECORDS SUMMARY | 2024-08-17 17:38 | XMS_ITS | Data Portability ---
Author Organization [place] - [facility] Address [address] [place] [address] Care Team Providers Care Motor Pool Clerk Name Role Phone PANCHO LINARES Primary Care Provider KARLI COOK Primary Care Provider Assessment Encounter Date Assessment Date Assessment LastModified by Organization Details LastModified Time 10/29/2021 10/29/2021 Time On Scene with Patient: 01:08:38 66 YO F patient new to . She complains of right thumb swelling that began yesterday and getting worse and is accompanied by redness, pain, warm. Pain is 10 out of 10. She applied cool compress, cleansed site with hydrogen peroxide, and took Tylenol with no relief. Denies any physical trauma, animal or human bite. PMHx includes COPD, CHF, ovarian cancer, lung cancer, anxiety, htn. Exam: VSS Very pleasant, female sitting in recliner conversing with staff and answering all questions appropriately. No acute distress, neurologically intact, EOMI, Respirations even and nonlabored, bilateral breath sounds clear to auscultation. Heart RRR. Right thumb edema, limited ROM with flexion, erythematous, tender and warm to touch. No pus collection to nail bed, no exudate noted. Skin intact. DDx: gout, Paronychia, cellulitis, digit fx Plan: -Imaging not warranted due to no physical trauma -No skin break, exudate, or pocket of pus collection. Less likely paronychia -Prednisone administered with visit to assist with swelling and discomfort. -Discussed with patient to follow up [facility] PCP for uric acid level assessment for possible gout infection. The patient is advised to make an appt with PCP in 3-5 days to discuss ongoing symptoms/ further management. The patient is also advised to go to the ED immediately for any worsening symptoms. The patient understood and agreed with this plan. The patient was given discharge instructions and all questions were answered prior to team departure. 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 Denies chest pain, headache, fever, abd pain. Not new to DH. New to provider. Vital Signs: 130/80, RR 20, temp 98.6, HR 78, 98% Exam: Alert, oriented. Non toxic. Ambulatory with steady gait, no increased WOB or GRANT. Cardiac: RRR, no murmurs. GI: distended, grossly non tender. MSK: lower extremity edema +2 b/l DDx considered, with rationale: PE- possible with SOB. Less likely in patient without tachycardia, hypoxia, chest pain, back pain. If develops any of the aforementioned sx advised to go to the ED. Pt in agreement. CHF exacerbation - likely with lower extremity edema, abd distension, orthopnea, SOB. Pt to call pulmonary tomorrow for repeat CXR as he has several to compare and notify of sx. Will send off BNP COPD exacerbation- possible secondary to URI URI- likely with congestion, runny nose COVID/ FLU- unlikely with negative COVID at home x 3, no flu test indicated at this time OOW for antivirals PNA - possible however no focal rhonchi on exam, fever, chest pain. Will treat CHF exacerbation today Sinusitis- possible. Will hold off on abx today due to being on bactrim and recently on levaquin. Pt with sx x 7 days, will re- eval at follow up to determine need for abx and possible pulmonary consult Proper Personal Protective Equipment (PPE), including gloves, eye protection and masks were donned and doffed appropriately and all equipment cleaned using approved technique with germicidal disposable wipes prior to and after care of this patient according to [facility]'s infection prevention protocols. Not available 08/19/2022 11:39:45 08/21/2022 08/21/2022 Originally was o n schedule to be seen by today however she got an appt with her manager community relations so she seems to have rescheduled and is now to be seen tomorrow. According to scheduling team. This all came to light after chart was created. Provider DID NOT SEE NOR EVALUATE PATIENT DO NOT SEND PATIENT BILL! [email or web address] Not available 08/21/2022 14:12:47 Plan of Treatment Reminders Order Date Submit Date Provider Last Modified By Organization Details Last Modified Time Details Appointments None recorded. Lab BMP + ionized calcium, serum or plasma 2022 023 [facility], [address] [place] [address], [id number], 05:01:45 pro BNP (pro B-type natriuretic peptide), serum or plasma 2022 023 [facility] (Centralized Electronic Ordering - All Locations), Patient Can Go To The Location Of Their Choice, [address] 18:35:11 Referral None recorded. Procedures None recorded. Surgeries None recorded. Imaging None recorded. Medication Orders clotrimazol e 10 mg yadira 2022 023 [facility]/Pharmacy #[id number], [address] [place], [address], 3 05:31:22 prednisone 10 mg tablet 2021 022 [email or web address] Not available 08:33:01 prednisone 20 mg tablet 2021 022 [email or web address] [facility]/Pharmacy #[id number], [address] [place], [address], 3 08:33:04 Patient TargetsNo targets recorded. Patient Instructions Encounter Date Encounter Id Patient Instructions Last Modified By Organization Details Last Modified Time 10/29/2021 [id number] Thank you for yo ur visit with [facility] today. We cannot always find the exact cause of your symptoms during your initial visit. Please follow up with your primary care provider or specialist within 12-24 hours within 24-48 hours within 2-3 days to be rechecked or seek medical attention if your symptoms do not go away or get worse. If you develop any new or worsening symptoms and need after hours care, please go to nearest ER and/or call 911. If you have additional concerns or develop a change in your condition between 8am-10pm, please call [facility] at [phone] to help navigate your care. [email or web address] Not available 10/29/2021 10:56:56 08/19/2022 [id number] Acute Bronchitis Instructions BASIC INFORMATION Acute bronchitis is swelling and irritation in the air passages of your lungs. This irritation may cause you to cough or have other breathing problems. Acute bronchitis often starts because of another viral illness, such as a cold or the flu. The illness spreads from your nose and throat to your windpipe and airways. Bronchitis is often called a chest cold. Acute bronchitis lasts about 2 weeks and is usually not a serious illness. Most cases of bronchitis DO NOT require antibiotics. INSTRUCTIONS Medicines: Ibuprofen or acetaminophen: These medicines help lower a fever and treat aches. Refer to the bottles for proper dosing based on age and weight. Use as needed. Do not take either of these medicines for more than 3 days in a row. Prolonged use of Ibuprofen can hurt your kidney and stomach. Prolonged use of Tylenol can injure your liver. Cough medicine: Avnf-cfh-igkiued (OTC) medicine helps loosen mucus in your lungs and make it easier to cough up. OTC cough medicine should NOT be used in children under age 3. Inhalers: You may need an inhaler to help you breathe easier and cough less. Inhalers help to relax the airways An inhaler gives medicine in a mist form so that you can breathe it into your lungs. If you were given an inhaler, take 2 puffs, four times per day for 2 days. After that, just use as needed for increased coughing, wheezing or tightness in chest. Steroid medicine: You may have been given prednisone or another steroid medication which helps open your air passages so you can breathe easier. Antibiotics: In most cases, antibiotics are not necessary for bronchitis. However, if your provider did prescribe these for you, please complete the entire course. You should also ask your pharmacist for a good cijy-vtx-iapcawu probiotic to take while you are on the antibiotic to help prevent antibiotic induced diarrhea. A good probiotic should have two species of live, active cultures. How to use an inhaler: 1) Shake the inhaler well to make sure you get the correct amount of medicine per puff. Remove the cover from your inhaler's mouthpiece. 2) Exhale as much air from your lungs as you can. Put the mouthpiece in your mouth, past your front teeth and rest it on the top of your tongue. Do not block the mouthpiece opening with your tongue. 3) Breathe in through your mouth at a slow and steady rate. As you do this, press the inhaler to release the puff of medicine. When your lungs are full, hold your breath for 10 seconds. Then breathe out slowly through puckered lips or through your nose. 4) If you need to take more puffs, wait at least 1 minute between each puff. 5) Using a spacer / air chamber ensures that you get the maximum amount of medicine from the inhaler. 6) Rinse your mouth with water after you use the inhaler. This may keep you from getting a mouth infection or irritation. 7) Follow the instructions that come with your inhaler to clean it. Self Care: 1) Do not smoke or allow others to smoke around you. Please call the [employer] Quit Line at to help in smoking cessation. Avoid chemicals, fumes, and dust. 2) Stay well hydrated 3) Seek care immediately if you: - develop a fever - develop a rash - become increasingly short of breath or you do not begin to improve 3-5 days (it may take 10 days for complete improvement) - cough up blood - have chest pain unrelated to coughing 4) Make appointment to follow up with you doctor within one week or sooner if directed by your [facility] provider. If you develop any new or worsening symptoms and need after hours care, please go to nearest ER and/or call 911. If you have additional concerns or develop a change in your condition between 8am-10pm, please call [facility] at [phone] to help navigate your care. Viral Illness Discharge Instructions BASIC INFORMATION A viral infection can range anywhere between a common cold and influenza. Most viruses will respond to a combination of time and supportive care. Viruses are eliminated by the bodies immune system and do not respond to antibiotics. Viruses can cause many different symptoms including runny stuffy nose, sore throat, headache, fever, body aches, cough, nausea, vomiting,diarrhea. Most of the viral illnesses are spread by hand to face contact, and the rest are spread through sneezing and coughing which releases virus into the air. Over the counter medications can help to relieve annoying symptoms. Occasionally having a virus may cause a secondary bacterial infection such as ear infections, pneumonia, sinusitis. INSTRUCTIONS Keeping your body as healthy as possible will help to limit your illness. Get plenty of rest Drink lots of fluids (water, herbal tea, gatorade) Reduce your risk of getting or giving a cold by avoiding touching your face with your hands. When you cough and sneeze cover your mouth/nose by placing your elbow or upper arm over the area rather than using your hand. Use a teaspoon of honey(avoid organic honey in infants and small children < 1 year) at bedtime to soothe your throat and ease cough. Sleep with head of bed elevated to promote drainage of secretions. Hot showers and humidifiers can help to loosen secretions. Tylenol over the counter can be helpful for aches and fever. Suck on hard, sugar-free candy during the day to keep the throat moist. MEDICATIONS Over the counter remedies are not recommended for young children, but can help relieve symptoms temporarily in adults. In general it is better to take only the medication you need rather than using combination products that contain ingredients that are unnecessary and may cause side effects. 1. Antihistamines (Benadryl, Chlor-Trimeton, Zyrtec, Claritin, Kelsey) reduce secretions, but can cause drowsiness and sedation, do not drink alcohol or drive while taking these medications. 2. Decongestants (Phenylephrine, Sudafed) can help to shrink swollen nasal passages and dry secretions, but may cause palpitations, anxiety,and are not safe for people with High blood pressure or heart arrhythmias. 3. Topical Decongestants (Afrin/Paxton-synephr ine) can be very helpful for acute relief of nasal swelling and runny nose, HOWEVER they should not be used regularly for more than 3 days as they will cause rebound congestion if over-used. 4. Cough aids generally contain DM( Dextromethorphan) which is a cough suppressant and Guaifenesin which is an expectorant. While the DM portion can be helpful for suppressing the cough, guaifenesin, particularly as dosed in Mucinex like products has minimal effect and may cause nausea. 5. Tamiflu an anti-viral agent may be prescribed if you are diagnosed with influenza. Viral symptoms usually last between 5-10 days, it is not uncommon to have a mild cough for up to 6 weeks afterward. If you have been diagnosed with influenza you should minimize your contact with others. You may return to work/school after 24 hours of being fever free without medication (usually 5-10 days). FOLLOW UP if your symptoms are not improving in 7-10 days If you have severe ear pain, sinus pain, cough productive large amounts of mucus, wheezing. You have underlying medical problems that may become worse as a result of your viral illness (asthma, diabetes, COPD) and need to follow up to ensure you are improving. SEEK CARE IMMEDIATELY IF 1 Severe headache unresponsive to Tylenol or severe neck stiffness 2. Confusion 3. Severe chest pain 4. Difficulty breathing 5. Persistent vomiting 6. Cough productive large amounts of sputum or blood 7. Inability to keep liquids down 8. Fever unresponsive to medication over 102 If you develop any new or worsening symptoms and need after hours care, please go to nearest ER and/or call 911. If you have additional concerns or develop a change in your condition between 8am-10pm, please call [facility] at [phone] to help navigate your care. Inhaler Instructions Before use, you need to prime the inhaler: ? Take the cap off the mouthpiece and put the inhaler in the spacer ? Shake the inhaler for 5 seconds ? Hold the inhaler upright with 1 finger on the top of the canister, the thumb on the bottom of the inhaler, and your other hand holding the spacer ? Express a large breath ? Close lips around spacer ? Press down on the canister ? After you press down on the canister, breathe (or have your child breathe in) deeply and slowly and hold your breath for 10 seconds ? Take out of your mouth and slowly exhale ? If you were instructed to take 2 puffs of the inhaler, wait one minute before you give the second puff. Shake the inhaler again before the second puff. ? If the inhaler is a steroid medicine (also called a ? g lucocorticoid? or ? c orticosteroid? ), rinse out your mouth, gargle, and spit out the water Cleaning: If you use the inhaler every day, you need to clean it at least once a week. If you use less often, clean the inhaler when you see powder in or around the hole. To clean an inhaler: ? Remove the canister and cap from the mouthpiece. Do not wash the canister or put the canister under water. ? Run warm water through the mouthpiece for 30 to 60 seconds ? Shake the water off of the mouthpiece and let it air dry Clean the spacer every 1-2 weeks. First, remove the inhaler from the spacer. Wash the spacer with warm water and dishwashing soap, but do NOT rinse it. Then let it air dry. Leaving the spacer a little soapy after cleaning actually helps it work better. [email or web address] Not available 08/19/2022 08:34:29 Lab ResultsBMP + ionized calcium, serum or plasma Na: 128mmol/L ? ref: 138-146 glu: 106mg/dL ? ref: 70-105 BUN: 11mg/dL ? ref: 8-26 crea: 0.7mg/dL ? ref: 0.6-1.3 K: 3.9mmol/L ? ref: 3.5-4.9 cL: 94mmol/L ? ref: 98-109 TCO2: 25mmol/L ? ref: 24-29 angap: 15mmol/L ? ref: 10-20 ica: 1.14mmol/L ? ref: 1.12-1.32 HCT: 38%pcv ? ref: 38-51 Hb: 12.9g/dL ? ref: 05-12 [email or web address] Not available 08/19/2022 09:11:53 Reason for Referral None Reported. Results Created Date Observation Date Name Description Value Unit Range Abnormal Flag Note LastModifiedBy Organization Detail LastModifiedTime 08/20/1908/19/2022 BMP + IONIZ ED CALCI UM, SERUM OR PLASM A Na 128 mmol/ L 138-14 6 low Not Available [address], [address], 08/19/2022 09:10:48 08/20/1908/19/2022 BMP + IONIZ ED CALCI UM, SERUM OR PLASM A glu 106 mg/dL 70-105 Not Available [address], [address], 08/19/2022 09:10:48 08/20/19 23 08/19/2022 BMP + IONIZ ED CALCI UM, SERUM OR PLASM A BUN 11 mg/dL 8-26 Not Available [address], [address], 08/19/2022 09:10:48 08/20/1908/19/2022 BMP + IONIZ ED CALCI UM, SERUM OR PLASM A crea 0.7 mg/dL 0.6-1. 3 Not Available [address], [address], 08/19/2022 09:10:48 08/20/1908/19/2022 BMP + IONIZ ED CALCI UM, SERUM OR PLASM A K 3.9 mmol/ L 3.5-4. 9 Not Available [address], [address], 08/19/2022 09:10:48 08/20/1908/19/2022 BMP + IONIZ ED CALCI UM, SERUM OR PLASM A cL 94 mmol/ L 98-109 Not Available [address], [address], 08/19/2022 09:10:48 08/20/1908/19/2022 BMP + IONIZ ED CALCI UM, SERUM OR PLASM A TCO2 25 mmol/ L 24-29 Not Available [address], [address], 08/19/2022 09:10:48 08/20/1908/19/2022 BMP + IONIZ ED CALCI UM, SERUM OR PLASM A angap 15 mmol/ L 10-20 Not Available [address], [address], 08/19/2022 09:10:48 08/20/1908/19/2022 BMP + IONIZ ED CALCI UM, SERUM OR PLASM A ica 1.14 mmol/ L 1.12-1 .32 Not Available [address], [address], 08/19/2022 09:10:48 08/20/1908/19/2022 BMP + IONIZ ED CALCI UM, SERUM OR PLASM A HCT 38 %pcv 38-51 Not Available [address], [address], 08/19/2022 09:10:48 08/20/1908/19/2022 BMP + IONIZ ED CALCI UM, SERUM OR PLASM A Hb 12.9 g/dL 12-17 Not Available [address], [address], 08/19/2022 09:10:48 Result Notes None recorded. Procedures Surgical History Date Name Laterality Status Provider Name and Address Organization Details Recorded Time 03/26/20 23 Medication Review completed Emma [place] NP [address] [facility] ,[address], [place], [address], [place] [facility] 08/19/2022 09:33:39 08/20/19 Venipuncture - DH completed Emma [place] NP [address] ,[address], [place], [address], [place] [facility] 08/19/2022 10:28:24 lobectomy of lung completed Caitlyn Guzman NP [address], [place], [address], [place] [facility] 10/29/2021 10:40:33 Total hysterectomy completed Caitlyn Guzman NP [address], [place], [address], [place] [facility] 10/29/2021 10:41:02 Remove kidney open completed Caitlyn Guzman NP [address], [place], [address], [place] [facility] 10/29/2021 10:42:57 Imaging Results None recorded. Procedure Notes None recorded. Medical Equipment None Reported. Allergies Allergen ID Allergen Name Allergen Category Reaction Reaction Severity Criticality Documentation Date Start Date Code Code System Note Provider Name and Address Organization Details Recorded Time 446123 fentanyl medicatio n Not available Not available Not available 10/29/2021 4337 RxNorm Caitlyn Guzman NP [address] [place], [address], [place] [facility] 2 10:32:58 [id number] Dilaudid medicatio n Not available Not available Not available 10/29/2021 60212 3 RxNorm Caitlyn Guzman NP [address] [place], [address], [place] [facility] 2 10:33:14 [id number] erythromy estuardo medicatio n Not available Not available Not available 08/19/2022 4053 RxNorm Emma [place] NP [address] [facility] [address], [place], [address], [place] [facility] 3 08:32:38 Medications Name Sig Start Date Stop Date Status Note LastModified by Organization Details LastModified Time atorvastati n 40 mg tablet TAKE 1 TABLET BY MOUTH EVERYDAY AT BEDTIME active Not Available Not Available No t Available clotrimazol e 10 mg yadira TAKE 1 TABLET BY MOUTH 5 TIMES A DAY DIRECTED FOR 7 DAYS active Not Available Not Available No t Available nystatin 100,000 unit/mL oral suspension TAKE 5 ML BY MOUTH EVERY DAY FOR 10 DAYS *SWISH AND SWALLOW* active Not Available Not Available No t Available prednisone 10 mg tablet TAKE 2+1/2 TABLETS (25MG) BY MOUTH EVERY DAY active Not Available Not Available No t Available benzonatate 200 mg capsule TAKE 1 CAPSULE BY MOUTH THREE TIMES A DAY FOR 2 WEEKS 08/19 completed Not Available Not Available Not Available prednisone 20 mg tablet TAKE 1 TABLET EVERY DAY DIRECTED FOR 6 DAYS. 08/19 completed Not Available Not Available Not Available clonazepam 0.5 mg tablet TAKE 1 TABLET BY MOUTH EVERY DAY active Not Available Not Available No t Available propranolol ER 60 mg capsule,24 hr,extended release TAKE 1 CAPSULE EVERY DAY active Not Available Not Available No t Available potassium chloride ER 10 mEq tablet,exte nded release TAKE 1 TABLET BY MOUTH EVERY DAY active Not Available Not Available No t Available sulfamethox azole 800 mg-trimetho prim 160 mg tablet TAKE 1 TABLET BY MOUTH EVERY SATURDAY, SATURDAY AND SATURDAY active Not Available Not Available No t Available aspirin 81 mg tablet,ida yed release TAKE 1 TABLET EVERY DAY*NOT COVERED active Not Available Not Available No t Available magnesium oxide 400 mg (241.3 mg magnesium) tablet TAKE 1 TABLET BY MOUTH EVERY DAY active Not Available Not Available No t Available cephalexin 500 mg capsule TAKE 1 CAPSULE BY MOUTH EVERY 12 HOURS FOR 10 DAYS 08/19 completed Not Available Not Available Not Available dexamethaso ne 4 mg tablet TAKE 1 TABLET BY MOUTH THREE TIMES A DAY FOR 5 DAYS active Not Available Not Available No t Available promethazin e 25 mg tablet TAKE 1 TABLET BY MOUTH 3 TIMES A DAY active Not Available Not Available No t Available sertraline 25 mg tablet TAKE 1 TABLET BY MOUTH EVERY DAY 10/29 completed Not Available Not Available Not Available nadolol 40 mg tablet TAKE 1 TABLET BY MOUTH 1 TIME EACH DAY. 10/29 completed Not Available Not Available Not Available furosemide 20 mg tablet TAKE 2 TABLETS BY MOUTH EVERY MORNING AND 1 TAB IN THE EVENING active Not Available Not Available No t Available lorazepam 1 mg tablet TAKE 1 TABLET BY MOUTH BEFORE PROCEDURE 10/29 completed Not Available Not Available Not Available levofloxaci n 500 mg tablet TAKE ONE TABLET (500 MG) ORALLY DAILY FOR 10 DAYS 08/19 completed Not Available Not Available Not Available levofloxaci n 750 mg tablet TAKE 1 TABLET BY MOUTH EVERY 24 HOURS FOR 5 DAYS active Not Available Not Available No t Available ondansetron 4 mg disintegrat ing tablet TAKE 1 TABLET BY MOUTH EVERY 8 HOURS NEEDED FOR NAUSEA AND VOMITING active Not Available Not Available No t Available doxycycline hyclate 100 mg tablet TAKE 1 TABLET BY MOUTH TWICE A DAY FOR 10 DAYS 10/29 completed Not Available Not Available Not Available Ventolin HFA 90 mcg/actuati on aerosol inhaler INHALE 2 PUFFS BY MOUTH 4 TIMES A DAY NEEDED FOR WHEEZE active Not Available Not Available No t Available oxycodone 5 mg tablet TAKE 1 TABLET BY MOUTH EVERY 6 HOURS X 2 DAYS NEEDED FOR PAIN 10/29 completed Not Available Not Available Not Available diclofenac 1 % topical gel PLEASE SEE ATTACHED FOR DETAILED DIRECTION S active Not Available Not Available No t Available Breo Ellipta 100 mcg-25 mcg/dose powder for inhalation INHALE 1 PUFF EVERY DAY FOR 30 DAYS active Not Available Not Available No t Available Breo Ellipta active Not Available Not Available Not Available Spiriva Respimat 2.5 mcg/actuati on solution for inhalation INHALE 2 PUFFS EVERY DAY active Not Available Not Available No t Available Readi-Cat 2 2 % (w/v) oral suspension DRINK FIRST BOTTLE [address] AND THEN DRINK SECOND BOTTLE [address] SCAN active Not Available Not Available No t Available Vitals Date Recorded Body temperature Oxygen saturation Oxygen saturation in Arterial blood by Pulse oximetry Respiratory rate Heart rate Systolic blood pressure Diastolic blood pressure Provider Name and Address Organization Details Last Updated DateTime 2 98.3 [degF] 98 % 98 % 18 /min 75 /min 122 mm[Hg] 74 mm[Hg] Not Available [facility] 2 10:40:04 Date Recorded Body temperature Oxygen saturation Oxygen saturation in Arterial blood by Pulse oximetry Heart rate Respiratory rate Systolic blood pressure Diastolic blood pressure Provider Name and Address Organization Details Last Updated DateTime 3 98.6 [degF] 98 % 98 % 78 /min 20 /min 130 mm[Hg] 80 mm[Hg] Not Available [facility] 3 08:36:09 Social History Question Answer Notes LastModified by Organizat ion Details LastModified Time Tobacco Smoking Status Former Smoker November Thomas, KELL [address], [place], [address], [place] [facility] 10/29/2021 10:47:13 What Is Your Level Of Alcohol Consumption? Occasional [email or web address] Information not available 10/29/2021 Do You Or Have You Ever Used E-cigarettes Or Vape? Current User Of Electronic Cigarettes [email or web address] Information not available 10/29/2021 Within The Past 12 Months, Has It Happened That The Food You Bought Just Didn't Last And You Didn't Have Money To Get More. No [email or web address] Information not available 10/29/2021 Within The Past 12 Months, Have You Worried That Your Food Would Run Out Before You Got Money To Buy More. No Information not available 10/29/2021 Fall Risk: Do You Feel Unsteady When Standing Or Walking? No [email or web address] Information not available 10/29/2021 We Know That How And When People Interact With Friends And Family Can Be Very Different From Person To Person. How Often Do You Have The Opportunity To See Or Talk To People That You Care About And Feel Close To? (Ex: Talking To Friends On The Phone Or Visiting Friends Or Family Or Going To [employer] Or Club Meetings) 5 Or More Times Per Week [email or web address] Information not available 10/29/2021 Excessive Alcohol Or Drug Use No [email or web address] Information not available 10/29/2021 Does This Patient Have A PCP? Yes [email or web address] Information not available 10/29/2021 Has The Patient Seen Their PCP In The Past 6 Months? Yes Information not available 10/29/2021 Is This Patient In Hospice? No [email or web address] Information not available 10/29/2021 We Know From Many Of Our Patients That Covering All Of Their Costs Can Be Difficult At Times. This Can Cause Stress And Impact Health. In The Past Year, Have You Been Unable To Get Any Of The Following When It Was Really Needed? No Information not available 10/29/2021 What Is Your Housing Situation Today? I Have Housing Information not available 10/29/2021 Would You Like Help Connecting To Resources? None [email or web address] Information not available 10/29/2021 Do You Use Any Illicit Or Recreational Drugs? No [email or web address] Information not available 10/29/2021 How Many Years Have You Smoked Tobacco? 39 [email or web address] Information not available 10/29/2021 Do You Or Have You Ever Used Any Other Forms Of Tobacco Or Nicotine? Yes [email or web address] Information not available 10/29/2021 Sex: Unknown Functional Status None recorded. Mental Status None recorded. Family History Relationship Description Onset Age of this Age Resolved Age Notes LastModified by Organization Details LastModified Time Father Diabetes mellitus [email or web address] Not available 2022 08:34:22 Sister Diabetes mellitus [email or web address] Not available 2022 08:34:22 Medical History Condition Response Diabetes N Coronary Artery Disease N CHF Y Parkinson's Disease N Cancer Y Stroke N Dementia N Asthma N Hypothyroidism N Depression N COPD Y High Cholesterol Y Rheumatoid Arthritis Pulmonary Embolism N Hypertension Y A-fib N Osteoporosis N Kidney Disease N Gynecological HistoryNo gynecological history recorded. Obstetrics History GPAL:G 0 P 0 0 0 0 Past Encounters Encounter ID Performer Location Encounter Start Date Encounter Closed Date Diagnosis/Indication Diagnosis SNOMED-CT Code Diagnosis ICD10 Code Diagnosis Note [id number] November KELL Guzman [facility] [address] [place] [address] 10/29/2021 10:28:10 11/06/2021 18:58:46 Swelling of finger joint 888970938 M79.89 [id number] Emma Jones NP [facility] [address] [place] [address] 08/19/2022 08:13:03 08/20/2022 15:35:02 Congestive heart failure 05938175 I50.9 Status of condition: {{Acute Ex acerbation /Acute on chronic Ch ronic Stab le Worseni ng/Progres carlos enrique* Unco ntrolled C ritical: Warrants escalation to ED. Undete rmined: Unclear staging of condition. Needs further evaluation and management by PCP and/or Specialist }}. Testing/Re sults: BNP, pt to call pulmonary tomorrow for repeat CXR due to living on second floor- not able to obtain at home CXR Discussion :Likely CHF exacerbati on with orthopnea, lower extremity edema which is not her normal, abd distension which is also not her norm. Pt was diagnosed with CHF 2 years ago and has had no lower extremity edema or additional edema since she developed URI sx 7 days ago. Taking 20 mg lasix daily, will increase to 40 mg daily for 3 days as kidney function is stable. Advised to call nephrologi st tomorrow due to having nephrectom y and notify of plan and sx. Plan, Medication Management & Follow-up recommenda tions:Curr ently taking lasix daily. Plan is to increase to 40 mg daily x 3 daysWeigh self daily, goal is to go back to baseline weight in 3-4 days with less SOBDH will follow up in 2-3 daysCall pulmonolog ist tomorrow for CXR and call nephrologi st to notify of sx and increasing lasixUnabl e to rule out PE without additional bloodwork as discussed with patient. PERC is 1 due to age, however, through shared decision making with no tachycardi a, hypoxia, chest pain PE unlikely and CHF exacerbati on with lower extremity edema, orthopnea more likely at this time. Stressed importance to patient that if she develops chest pain, SOB, back pain, unilateral leg swelling to go to the ED with low threshold. Pt in agreement. Candidiasis of mouth [id number] B37.0 Status of condition: {{Acute* E xacerbatio n/Acute on chronic Ch ronic Stab le Worseni ng/Progres carlos enrique Uncon trolled Cr itical: Warrants escalation to ED. Undete rmined: Unclear staging of condition. Needs further evaluation and management by PCP and/or Specialist }}.Testing /Results: Discussion :Evident on exam. Likely secondary to ICS and PO steroid use. Stressed importance of rinsing mouth after ICS use. Continue to clean dentures at night. Plan, Medication Management & Follow-up recommenda tions:Clot rimazole troches daily for 7 daysRinse mouth after ICS useNo emergent needs for escalation or higher level of care present on exam or with VS review. Discussed need for follow up should urgent symptoms develop. Viral uppe r respiratory tract infection [id number] J06.9 Status of condition: {{Acute* E xacerbatio n/Acute on chronic Ch ronic Stab le Worseni ng/Progres carlos enrique Uncon trolled Cr itical: Warrants escalation to ED. Undete rmined: Unclear staging of condition. Needs further evaluation and management by PCP and/or Specialist }}.Testing /Results: COVID and Flu testing not indicated Discussion :congestio n, runny nose x 7 days supporting viral URI Plan, Medication Management & Follow-up recommenda tions:No abx indicated at this timePlain mucinex, fluids 6 cups per day Hyponatremia [id number] E8 7.1 Status of condition: {{Acute* E xacerbatio n/Acute on chronic Ch ronic Stab le Worseni ng/Progres carlos enrique Uncon trolled Cr itical: Warrants escalation to ED. Undete rmined: Unclear staging of condition. Needs further evaluation and management by PCP and/or Specialist }}.Testing /Results: BMP, Na 128 Discussion :Unknown if is chronic. While on increased dose of lasix, can increase salt slightly during the day. Will recheck in 3 days at follow up. Plan, Medication Management & Follow-up recommenda tions:Incr ease salt intake for 2-3 days while on increased dose of lasixReche ck with PCP [id number] EMY Meehan [facility] [address] [place] [address] 08/21/2022 11:47:34 08/21/2022 18:38:11 Health Concerns Section Related Observation LastModified by Organization Detai ls LastModified Time None Recorded Concern Status LastModified by Organization Details LastModified Time None Recorded Advance Directives Directive None Recorded Payers Encounter Date Sequence Insurance Name Policy Number Policy Segura Covered Member ID Segura Member ID Guarantor Name 10/29/2021 1 [place] [employer] Sho MacNair [id number] Sho MacNair 10/29/2021 2 [place] Sho MacNair [id number] Sho MacNair 08/19/2022 2 [place] Sho MacNair [id number] Sho MacNair 08/19/2022 1 [place] [facility] Sho ShipleyNair [id number] Sho ShipleyNair 08/21/2022 2 [place] [facility] Sho ShipleyNair [id number] Sho ShipleyNair 08/21/2022 1 [place] [facility] Sho Venegas MacNair [id number] Sho ShipleyNaimiguel ángel Notes Date Note Type Note Provider Name and Address Organization Details Recorded Time 2 text/html 66 YO F patient new to . She complains of right thumb swelling that began yesterday and getting worse and is accompanied by redness, throbbing pain, warm. Pain is 10 out of 10. She applied cool compress, cleansed site with hydrogen peroxide, and took Tylenol with no relief. Denies any physical trauma, animal orhuman bite. PMHx includes COPD, CHF, ovarian cancer, lung cancer, anxiety, htn. November KELL Guzman [address], [place], [address], [place] [facility] 10/29/2021 14:19:46 3 text/html Pt states has history of lung CA in 2012, had partial lobectomy. 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 3 months ago diagnosed with PNA, given prednisone on Jul 18 - given 10 mg daily for 1 month. Also taking bactrim Sat and Saturday to prevent PNA via pulmonary. Getting regular CXRs, last CXR 1 week ago pt is unsure of results.Pt states 7 days ago with sore throat, congestion,runny nose, facial pressure, chest congestion with green phlegm. Pt states is more SOB than usual. Sx are staying about the same over the past week. Not able to sleep due to laying down starts to cough and feels need to sit up. Has been sleeping elevated with pillow the past 5 nights on the couch. 5 pound weight gain, orthopnea, slight abd bloating and leg swelling over the past 7 days. Slightly less intake than usual, trying to push fluids. Taking mucinex, avoids ibuprofen/ OTC cough meds due to history. Denies current SOB, chest pain, abd pain. COVID negative at home. now with similar sx. Emma Jones NP [address], [place], [address], [place] [facility] 08/20/2022 10:56:45 3 text/html Originally was on schedule to be seen by today however she got an appt with her manager community relations so she seems to have rescheduled and is now to be seen tomorrow. According to scheduling team. This all came to light after chart was created. Provider DID NOT SEE NOR EVALUATE PATIENT DO NOT SEND PATIENT BILL! EMY Azevedo [address], [place], [address], [place] [facility] 08/21/2022 14:12:59 OBGyn Episode No OBEpisode recorded.
--- OUTSIDE RECORDS SUMMARY | 2024-08-17 17:38 | XMS_ITS | Clinical Summary ---
Author Organization [facility] Address [address] [facility] [address] [place] [address] Phone Care Team Providers Care Quality Control Tester Name Role Phone Eddi Kee MD Primary Care Provider [phone] Allergies Active Allergy Reactions Criticality Noted Date Comments Codeine Other (see comments) 01/24/2021 Erythromycin Other (see comments) 01/24/2021 Erythromycin Base 11/20/2023 Fentanyl 07/23/2022 Hydromorphone 07/23/2022 Other Reaction(s): made me stop breathing Nsaids 11/20/2023 Other Reaction(s): can't have after kidney removal Paroxetine Other (see comments) 01/24/2021 Penicillins 11/20/2023 Other Reaction(s): unknown reaction - happened as a child Medications promethazine (PHENERGAN) 25 MG tablet Take 1 tablet by mouth 3 times a day 01/20/2021 Active magnesium oxide (MAG-OX) 400 MG tablet Take 1 tablet by mouth 1 (one) time each day 12/23/2020 Active potassium chloride 10 MEQ CR tablet Take 10 mEq by mouth 1 (one) time each day 11/28/2020 Active atorvastatin (LIPITOR) 40 MG tablet Take 40 mg by mouth 1 (one) time each day in the evening 12/22/2020 Active folic acid (FOLVITE) 1 MG tablet Take 1 tablet by mouth 1 (one) time each day Active Ventolin HFA 108 (90 Base) MCG/ACT inhaler INHALE 2 PUFFS BY MOUTH 4 TIMES A DAY NEEDED FOR WHEEZE 01/13/2021 Active Breo Ellipta 100-25 MCG/INH aerosol powder 1 puff 1 (one) time each day 01/09/2021 Active Spiriva Respimat 2.5 MCG/ACT aerosol solution INHALE 2 PUFF DIRECTED ONCE A DAY 01/16/2021 Active nadolol (Corgard) 40 MG tablet Take 1 tablet (40 mg total) by mouth 1 (one) time each day 30 tablet 5 09/19/2021 Active predniSONE (DELTASONE) 10 MG tablet Take 10 mg by mouth 1 (one) time each day Active furosemide (LASIX) 20 MG tablet Take 2 tablets (40 mg total) by mouth in the morning and 2 tablets (40 mg total) in the evening. 120 tablet 5 11/13/2022 Active propranolol LA (INDERAL LA) 60 MG 24 hr capsule 1 capsule 1 (one) time each day 09/25/2021 Active clonazePAM (KlonoPIN) 0.5 MG tablet Take 1 tablet by mouth 1 (one) time each day 03/09/2021 Active oxyCODONE-aceta minophen (PERCOCET) 2.5-325 MG per tablet TAKE 1 TABLET BY MOUTH 2 TIMES A DAY FOR PAIN FOR 30 DAYS 10/22/2023 Active Active Problems Problem Noted Date Diagnosed Date Absent kidney 01/24/2021 Chronic kidney disease stage 2 01/24/2021 Hyponatremia 01/24/2021 Family History Medical History Relation Comments Cancer Father Diabetes Father Heart disease Father Hypertension Father Stroke Father Hypertension Mother Diabetes Sibling 1 Hypertension Sibling 2 Heart disease Sibling 3 Relation Status Comments Father Mother Alive Sibling 1 Sibling 2 Sibling 3 Social History Tobacco Use Types Packs/Day Years Used Date Smoking Tobacco: Former Smokeless Tobacco: Never Alcohol Use Standard Drinks/Week Comments Yes 0 (1 standard drink = 0.6 oz pure alcohol) Alcoholic Drinks/day: 1-2 drinks per day Comments Unknown Sex and Gender Information Value Date Recorded Sex Assigned at Not on file Legal Sex Female 5:10 PM EST Gender Identity Not on file Sexual Orientation Not on file Last Filed Vital Signs Vital Sign Reading Time Taken Comments Blood Pressure 101/63 11/20/2023 1:09 PM EDT Pulse 65 11/20/2023 1:09 PM EDT Temperature - - Respiratory Rate - - Oxygen Saturation - - Inhaled Oxygen Concentration - - Weight 49.4 kg (109 lb) 11/20/2023 1:09 PM EDT Height - - Body Mass Index - - Plan of Treatment Upcoming Encounters Date Type Department Care Team (Late st Contact Info) Description 11/11/2024 1:30 PM EDT Office Visit [facility] [address] [place] [id number] Ancelmo Enriquez MD [address] [phone] Health Maintenance Due Date Last Done Comments Breast Cancer Screening 1957 Colorectal Cancer Screening: Annual FOBT 2006 Colorectal Cancer Screening: Colonoscopy 2006 Colorectal Cancer Screening: Sigmoidoscopy 2006 Hepatitis B Vaccine (1 of 3 - Risk 3-dose series) 2017 Pneumococcal Vaccine: 65+ Ye ars (3 of 3 - PPSV23 or PCV20) 09/05/2017 04/22/2017, 09/05/2012 Influenza Vaccine (#1) 2024 Insurance MEDICARE [facility] MEDICARE Care Teams Quality Control Tester Relationship Specialty Start Date End Date Eddi Kee MD [address] [address] PCP - General Family Medicine 02/27/22
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
--- OUTSIDE RECORDS SUMMARY | 2024-08-17 17:38 | XMS_ITS | Clinical Summary ---
Author Organization [employer] Address [address] [facility] [address] [place] [address] Care Team Providers Care [employer] Name Role Phone Unavailable Primary Care Provider Unavailabl e Allergies Active Allergy Reactions Criticality Noted Date Comments Codeine Unknown 01/24/2021 Erythromycin Unknown 01/24/2021 Fentanyl 07/23/2022 Hydromorphone 07/23/2022 Paroxetine Unknown 01/24/2021 Medications sulfamethoxazol e-trimethoprim (Bactrim DS) 800-160 MG tablet Take 1 tablet by mouth every 12 (twelve) hours. 2 Active propranolol LA (Inderal LA) 60 MG 24 hr capsule Take 60 mg by mouth in the morning. 3 Active promethazine (Phenergan) 25 MG tablet Take 25 mg by mouth 3 times daily. 3 Active predniSONE (Deltasone) 20 MG tablet TAKE 1 TABLET EVERY DAY DIRECTED FOR 6 DAYS. 2 Active potassium chloride CR (Klor-Con) 10 MEQ ER tablet Take 10 mEq by mouth in the morning. 2 Active Breo Ellipta 100-25 MCG/ACT aerosol powder INHALE 1 PUFF EVERY DAY FOR 30 DAYS 3 Active furosemide (Lasix) 20 MG tablet TAKE 2 TABLETS BY MOUTH EVERY MORNING AND 1 TAB IN THE EVENING 2 Active Aspirin Low Dose 81 MG EC tablet TAKE 1 TABLET EVERY DAY*NOT COVERED 3 Active Ventolin HFA 108 (90 Base) MCG/ACT inhaler INHALE 2 PUFFS BY MOUTH 4 TIMES A DAY NEEDED FOR WHEEZE 2 Active tiotropium (Spiriva Respimat) 2.5 MCG/ACT inhaler Spiriva Respimat 2.5 mcg/actuation solution for inhalation Active Fluticasone Furoate-Vilante rol 100-25 MCG/ACT aerosol powder fluticasone furoate 100 mcg-vilanterol 25 mcg/dose inhalation powder Active atorvastatin (Lipitor) 40 MG tablet Take 40 mg by mouth at bedtime. 2 Active clonazePAM (KlonoPIN) 0.5 MG tablet Take 0.5 mg by mouth in the morning. 3 Active Spiriva Respimat 2.5 MCG/ACT inhaler INHALE 2 PUFF DIRECTED ONCE A DAY 3 Active Immunizations Name Administration Dates Next Due Influenza, IIV3, injectable 03/30/2021 Social History Tobacco Use Types Packs/Day Years Used Date Smoking Tobacco: Never Smokeless Tobacco: Never Tobacco Cessation:Counseling Given: Not Answered Comments Unknown Sex and Gender Information Value Date Recorded Sex Assigned at Female 07/23/2022 4:06 PM EST Legal Sex Female 2:01 PM EST Gender Identity Female 07/23/2022 4:06 PM EST Sexual Orientation Straight 07/23/2022 4: 06 PM EST Plan of Treatment Health Maintenance Due Date Last Done Comments CT Colonography 1957 Colonoscopy 1957 Colorectal Cancer Screening 1957 Dental Prophylaxis 1957 Dental X-Ray: Bitewings 1957 Dental X-Ray: Full Mouth 1957 Depression Screening 1957 FIT DNA/Cologuard 1957 FIT 1957 FOBT 1957 Lipid Panel 1957 SDOH Screening 1957 Sigmoidoscopy 1957 Alcohol/Substance Use Screening 1969 Hepatitis C Screening 1975 Hepatitis A Vaccines (1 of 2 - Risk 2-dose series) 02/29/1976 Mammogram 1997 Zoster Vaccines (1 of 2) 2007 DTaP/Tdap/Td Vaccines (1 - Tdap) 09/28/2011 09/27/2011 Hepatitis B Vaccines (1 of 3 - Risk 3-dose series) 2017 RSV Patients and Patients Aged 60 years or older (1 - Risk 60-74 years 1-dose series) 2017 Pneumococcal Vaccine: 50+ Years (3 of 3 - PCV20 or PCV21) 04/22/2022 04/22/2017, 09/05/2012 Dental Oral Exam 01/21/2023 07/23/2022 Tobacco Screening 07/23/2023 07/23/2022 COVID-19 Vaccine (4 - 2023-2 5 season) 2024 03/31/2021, 09/19/2020, 08/27/2020 Influenza Vaccine (#1) 2024 03/30/2021 HIB Vaccines Aged Out No longer eligi ble based on patient's age to complete this topic HPV Vaccines Aged Out No longer eligi ble based on patient's age to complete this topic IPV Vaccines Aged Out No longer eligi ble based on patient's age to complete this topic Meningococcal Vaccine Aged Out No teetee mu eligible based on patient's age to complete this topic RSV under 20 months Aged Out No longe r eligible based on patient's age to complete this topic Rotavirus Vaccines Aged Out No longer eligible based on patient's age to complete this topic Procedures Procedure Name Priority Date/Time Associated Diagnosis Comments COMPREHENSIVE ORAL EVALUATION - NEW OR ESTABLISHED PATIENT Routine 07/23/2022 4:00 PM EST from Last 3 Months or Most Recently Relevant to Health Maintenance
== END 2024-08-17 15:38 | disposition home or self-care (01) ==
LOC: HO.HMCFM 14:46
PROVIDERS: PCP Family Medicine; Visit Provider Family Medicine
DX: I10 Essential (primary) hypertension (principal); R60.0 Localized edema; K59.00 Constipation, unspecified; Z12.11 Encounter for screening for malignant neoplasm of colon

== ENCOUNTER → 2024-08-17 14:45 | Outpatient (BNVA) | payer MEDICARE, SELFPAY | PROVIDERS: PCP Family Medicine; Visit Provider Family Medicine | DX: I10 Essential (primary) hypertension (principal); R60.0 Localized edema; K59.00 Constipation, unspecified | CPT/HCPCS: 99212 ==